=== PATIENT | female | born 1960 | race Caucasian/White ===

== ENCOUNTER 2017-04-09 12:32 | Inpatient (IN) | payer BC ==
[2017-04-09] MEDS: SOD CHLORIDE 0.9% 1,000 ML IV
[2017-04-09] MEDS: ACETAMINOPHEN 325 MG TAB PO ×2 (14:00→20:02)
[2017-04-09] MEDS: SODIUM CHLORIDE 0.9% 1L BAG IV* (14:46)
[2017-04-09 14:51] LABS: ADD MAN DIFF? NO
[2017-04-09 14:54] LABS: BASOPHILS % 0.3 % (0.0-2.0); HEMATOCRIT 28.4 % (37.0-47.0); HEMOGLOBIN 9.4 g/dl (12.0-16.0); LYMPHOCYTES # 0.6 10^3/ul (0.8-2.9); MEAN CORPUSCULAR HEMOGLOBIN 27.8 pg (29.0-33.0); MEAN CORPUSCULAR HGB CONC 33.1 g/dl (32.0-37.0); MEAN PLATELET VOLUME 11.2 fl (7.4-10.4); MONOCYTE # 0.3 10^3/ul (0.3-0.9); MONOCYTES % 7.6 % (0.0-11.0); NEUTROPHILS % 75.1 % (39.0-77.0); PLATELET COUNT 127 10^3/UL (140-415); RED BLOOD COUNT 3.38 10^6/ul (4.20-5.40); RED CELL DISTRIBUTION WIDTH 15.9 % (11.5-14.5)
[2017-04-09 14:54] LABS: WHITE BLOOD COUNT 3.9 10^3/ul (4.8-10.8)
[2017-04-09 14:55] LABS: POSITIVE DIFF @See below
[2017-04-09 15:10] LABS: INR 1.25; PROTIME 15.9 Sec (11.9-14.9); PT RATIO 1.2
[2017-04-09 15:11] LABS: PARTIAL THROMBOPLASTIN TIME 43.4 Sec (25.0-35.0)
[2017-04-09 15:13] LABS: ALANINE AMINOTRANSFERASE 45 IU/L (13-69); ALBUMIN 2.9 g/dl (3.3-4.9); ALKALINE PHOSPHATASE 190 IU/L (42-121); ANION GAP 13 (8-16); ASPARTATE AMINO TRANSFERASE 36 IU/L (15-46); BILIRUBIN,INDIRECT 0.4 mg/dl (0-1.1); BILIRUBIN,TOTAL 0.4 mg/dl (0.2-1.3); BLOOD UREA NITROGEN 26 mg/dl (7-20); CALCIUM 8.4 mg/dl (8.4-10.2); CARBON DIOXIDE 23 mmol/L (21-31); CHLORIDE 102 mmol/L (97-110); CREATININE 0.84 mg/dl (0.44-1.00); GLUCOSE 256 mg/dl (70-220); POTASSIUM 4.2 mmol/L (3.5-5.1); SODIUM 134 mmol/L (135-144)
[2017-04-09] MEDS: ONDANSETRON 4 MG INJ IV (15:14)
[2017-04-09] MEDS: HYDROmorphONE 1 MG/ML SYG IV ×5 (15:14→23:20)
[2017-04-09 15:15] LABS: LACTIC ACID 2.7 mmol/L (0.5-2.0)
[2017-04-09 15:31] LABS: TROPONIN-I < 0.012 ng/ml (0.00-0.12)
[2017-04-09] MEDS: SOD CHLORIDE 0.9% 100 ML (15:57)
[2017-04-09] MEDS: IOHEXOL 300MG/ML 150 ML BTL (15:58)
[2017-04-09] MEDS: CEFEPIME 1GM/50 ML (PMX) 50 ML IVPB (18:30)
[2017-04-09 18:53] LABS: LACTIC ACID 1.3 mmol/L (0.5-2.0)
[2017-04-09 19:55] LABS: ADD UMIC YES; UR ASCORBIC ACID 40 mg/dL (NEGATIVE); UR BILIRUBIN (Dip) NEGATIVE (NEGATIVE); UR BLOOD (Dip) NEGATIVE (NEGATIVE); UR CLARITY CLEAR (CLEAR); UR COLOR YELLOW (YELLOW); UR GLUCOSE (Dip) NEGATIVE (NEGATIVE); UR KETONES (Dip) NEGATIVE (NEGATIVE); UR LEUKOCYTE ESTERASE (Dip) NEGATIVE Leu/ul (NEGATIVE); UR NITRITE (Dip) NEGATIVE (NEGATIVE); UR RBC 1 /HPF (0-5); UR SPECIFIC GRAVITY (Dip) 1.058 (1.003-1.030); UR TOTAL PROTEIN (Dip) 1+ mg/dl (NEGATIVE); UR UROBILINOGEN (Dip) NEGATIVE (NEGATIVE); UR WBC 4 /HPF (0-5)
[2017-04-09] MEDS: VANCOMYCIN 1.5 GM in SOD CHLORIDE 0.9% 250 ML IVPB (19:55)
[2017-04-09] MEDS ORDERED: VANCOMYCIN IV PER PHARMACY XX (20:00)
[2017-04-09] MEDS ORDERED: ONDANSETRON 4 MG INJ IV (20:00)
[2017-04-09 20:06] LABS: ALANINE AMINOTRANSFERASE 53 IU/L (13-69); ALBUMIN 2.8 g/dl (3.3-4.9); ALKALINE PHOSPHATASE 190 IU/L (42-121); ASPARTATE AMINO TRANSFERASE 41 IU/L (15-46); BILIRUBIN,INDIRECT 0.4 mg/dl (0-1.1); BILIRUBIN,TOTAL 0.4 mg/dl (0.2-1.3); TOTAL PROTEIN 6.6 g/dl (6.1-8.1)
[2017-04-09] MEDS: INSULIN ASPART [NOVOLOG] 3 ML PEN SC (21:00)
[2017-04-09] MEDS ORDERED: ONDANSETRON 4 MG TAB PO (21:30)
[2017-04-09] MEDS ORDERED: HYDROmorphONE 2 MG TAB PO (21:30)
[2017-04-09] MEDS: CLONIDINE 0.1 MG/24 HR PATCH TRANSDERM (22:00)
[2017-04-09] MEDS: FENTAnyl PATCH 12 MCG/HR TRANSDERM (23:13)
[2017-04-09] MEDS: INSULIN GLARGINE [LANtus] 3 ML PEN SC (23:17)
[2017-04-09] MEDS: ENOXAPARIN 60 MG/0.6 ML SYG SC (23:49)
[2017-04-09] MEDS: OCTREOTIDE 100 MCG INJ SC (23:49)
[2017-04-10] MEDS ORDERED: TPN 1,000 ML IV
[2017-04-10] MEDS ORDERED: DEXTROSE 50% 50 ML SYRINGE (01:52)
[2017-04-10] MEDS: DEXTROSE 50% 50 ML SYRINGE IV ×2 (01:53→04:21)
[2017-04-10] MEDS ORDERED: GLUCOSE GEL 15 GRAM TUBE PO ×2 (02:00)
[2017-04-10] MEDS ORDERED: GLUCAGON 1 MG INJ IM (02:00)
[2017-04-10] MEDS: ACCU-CHEK XX (02:00)
[2017-04-10] MEDS ORDERED: DEXTROSE 50% 50 ML SYRINGE IV (02:00)
[2017-04-10] MEDS ORDERED: GLUCOSE GEL 15 GRAM TUBE BUCCAL (02:00)
[2017-04-10] MEDS ORDERED: DEXTROSE 10% 1,000 ML IV ×2 (02:00→02:07)
[2017-04-10] MEDS: DEXTROSE 10% 1,000 ML IV (02:15)
[2017-04-10] MEDS: PANTOPRAZOLE 40 MG INJ IV ×2 (02:52→06:00)
[2017-04-10] MEDS: HYDROmorphONE 2 MG/ML SYG IV ×5 (02:55→22:14)
[2017-04-10 05:43] LABS: ADD MAN DIFF? NO
[2017-04-10 05:45] LABS: WHITE BLOOD COUNT 2.3 10^3/ul (4.8-10.8)
[2017-04-10 05:45] LABS: ABNORMAL IP MESSAGE 1; BASOPHILS % 0.4 % (0.0-2.0); EOSINOPHILS % 1.3 % (0.0-7.0); HEMOGLOBIN 8.3 g/dl (12.0-16.0); LYMPHOCYTES # 0.6 10^3/ul (0.8-2.9); MEAN CORPUSCULAR HEMOGLOBIN 27.9 pg (29.0-33.0); MEAN CORPUSCULAR HGB CONC 31.9 g/dl (32.0-37.0); MEAN CORPUSCULAR VOLUME 87.2 fl (82.0-101.0); MEAN PLATELET VOLUME 11.3 fl (7.4-10.4); MONOCYTE # 0.2 10^3/ul (0.3-0.9); NEUTROPHIL # 1.5 10^3/ul (1.6-7.5); NEUTROPHILS % 63.4 % (39.0-77.0); PLATELET COUNT 107 10^3/UL (140-415); RED BLOOD COUNT 2.98 10^6/ul (4.20-5.40); RED CELL DISTRIBUTION WIDTH 15.9 % (11.5-14.5)
[2017-04-10] MEDS: ACETAMINOPHEN 325 MG TAB PO (05:52)
[2017-04-10 06:00] LABS: POSITIVE DIFF @See below
[2017-04-10] MEDS ORDERED: HYDROmorphONE 2 MG/ML SYG IV (06:00)
[2017-04-10 06:15] LABS: LACTIC ACID 0.9 mmol/L (0.5-2.0)
[2017-04-10 06:18] LABS: ANION GAP 9 (8-16); BLOOD UREA NITROGEN 14 mg/dl (7-20); CALCIUM 7.9 mg/dl (8.4-10.2); CARBON DIOXIDE 24 mmol/L (21-31); CHLORIDE 108 mmol/L (97-110); POTASSIUM 3.6 mmol/L (3.5-5.1); SODIUM 137 mmol/L (135-144)
[2017-04-10 06:44] LABS: GLUCOSE 45 mg/dl (70-220)
[2017-04-10] MEDS: LEVOTHYROXINE 75 MCG TAB PO (06:50)
[2017-04-10] MEDS: INSULIN ASPART [NOVOLOG] 3 ML PEN SC ×4 (07:35→20:08)
[2017-04-10] MEDS: OCTREOTIDE 100 MCG INJ SC ×3 (08:50→22:40)
[2017-04-10] MEDS: CHOLECALCIFEROL 2,000 UNIT CAP PO (08:53)
[2017-04-10] MEDS: ASCORBIC ACID 500 MG TAB PO ×2 (08:53→22:04)
[2017-04-10] MEDS: MULTIVITAMINS/MINERALS TAB PO (08:53)
[2017-04-10] MEDS: ZINC SULFATE 220 MG CAP PO (08:54)
[2017-04-10] MEDS: CEFEPIME 1GM/50 ML (PMX) 50 ML IVPB (08:55)
[2017-04-10] MEDS: VANCOMYCIN 750 MG in DEXTROSE 5% 150 ML IVPB ×2 (10:47→22:03)
[2017-04-10] MEDS: ANASTROZOLE 1 MG TAB PO (12:27)
[2017-04-10] MEDS: SOD CHLORIDE 0.9% 1,000 ML IV (13:21)
[2017-04-10] MEDS: VANCOMYCIN HCL 250 MG/5ML POSYG PO ×2 (14:14→16:37)
[2017-04-10] MEDS: INSULIN GLARGINE [LANtus] 3 ML PEN SC (20:09)
[2017-04-10] MEDS: TPN 1,000 ML IV (20:15)
[2017-04-10] MEDS: ENOXAPARIN 60 MG/0.6 ML SYG SC (22:06)
[2017-04-10] MEDS: ZOLPIDEM 5 MG TAB PO (22:39)
[2017-04-11] MEDS: INSULIN ASPART [NOVOLOG] 3 ML PEN SC ×6 (01:00→20:23)
[2017-04-11] MEDS: VANCOMYCIN HCL 250 MG/5ML POSYG PO ×5 (01:23→22:19)
[2017-04-11] MEDS: TPN 1,000 ML IV ×3 (01:25→18:28)
[2017-04-11] MEDS: ACCU-CHEK XX (01:28)
[2017-04-11] MEDS: HYDROmorphONE 2 MG/ML SYG IV ×7 (02:01→23:19)
[2017-04-11] MEDS: LEVOTHYROXINE 75 MCG TAB PO (05:22)
[2017-04-11] MEDS: PANTOPRAZOLE 40 MG INJ IV (05:22)
[2017-04-11] MEDS: OCTREOTIDE 100 MCG INJ SC ×3 (05:22→20:16)
[2017-04-11] MEDS: SOD CHLORIDE 0.9% 1,000 ML IV (05:34)
[2017-04-11 08:26] LABS: ALANINE AMINOTRANSFERASE 48 IU/L (13-69); ALBUMIN 2.6 g/dl (3.3-4.9); ALBUMIN/GLOBULIN RATIO 0.63; ALKALINE PHOSPHATASE 143 IU/L (42-121); ANION GAP 11 (8-16); ASPARTATE AMINO TRANSFERASE 34 IU/L (15-46); BILIRUBIN,INDIRECT 0.3 mg/dl (0-1.1); BILIRUBIN,TOTAL 0.3 mg/dl (0.2-1.3); BLOOD UREA NITROGEN 13 mg/dl (7-20); CALCIUM 8.5 mg/dl (8.4-10.2); CARBON DIOXIDE 26 mmol/L (21-31); CHLORIDE 107 mmol/L (97-110); CREATININE 0.73 mg/dl (0.44-1.00); GLUCOSE 126 mg/dl (70-220); MAGNESIUM 1.8 mg/dl (1.7-2.5); PHOSPHORUS 3.1 mg/dl (2.5-4.9); POTASSIUM 3.9 mmol/L (3.5-5.1); SODIUM 140 mmol/L (135-144); TOTAL PROTEIN 6.7 g/dl (6.1-8.1); TRIGLYCERIDES 174 mg/dl (0-149)
[2017-04-11 08:30] LABS: VANCOMYCIN,TROUGH 13.4 ug/ml (10.0-20.0)
[2017-04-11] MEDS: ASCORBIC ACID 500 MG TAB PO ×2 (08:52→20:15)
[2017-04-11] MEDS: VANCOMYCIN 750 MG in DEXTROSE 5% 150 ML IVPB ×2 (08:52→20:16)
[2017-04-11] MEDS: CHOLECALCIFEROL 2,000 UNIT CAP PO (08:52)
[2017-04-11] MEDS: ZINC SULFATE 220 MG CAP PO (08:53)
[2017-04-11 08:56] LABS: PREALBUMIN 9.1 mg/dl (17.6-36.0)
[2017-04-11] MEDS: ANASTROZOLE 1 MG TAB PO (09:14)
[2017-04-11 09:34] LABS: ERYTHROCYTE SEDIMENTATION RATE 93 mm/Hr (0-30)
[2017-04-11] MEDS: CEFEPIME 1GM/50 ML (PMX) 50 ML IVPB ×2 (11:13→21:21)
[2017-04-11] MEDS: MULTIVITAMINS/MINERALS TAB PO (11:13)
[2017-04-11] MEDS: INSULIN GLARGINE [LANtus] 3 ML PEN SC (20:27)
[2017-04-11] MEDS: ENOXAPARIN 60 MG/0.6 ML SYG SC (21:23)
[2017-04-11] MEDS: ZOLPIDEM 5 MG TAB PO (22:14)
[2017-04-12] MEDS: INSULIN ASPART [NOVOLOG] 3 ML PEN SC ×6 (01:00→21:21)
[2017-04-12] MEDS: TPN 1,000 ML IV ×4 (01:00→20:17)
[2017-04-12] MEDS: HYDROmorphONE 2 MG/ML SYG IV ×7 (01:59→21:36)
[2017-04-12] MEDS: ACCU-CHEK XX (02:19)
[2017-04-12] MEDS: SOD CHLORIDE 0.9% 1,000 ML IV ×2 (04:13→20:40)
[2017-04-12] MEDS: PANTOPRAZOLE 40 MG INJ IV (05:05)
[2017-04-12] MEDS: LEVOTHYROXINE 75 MCG TAB PO (05:05)
[2017-04-12] MEDS: OCTREOTIDE 100 MCG INJ SC ×3 (05:05→21:19)
[2017-04-12] MEDS: VANCOMYCIN HCL 250 MG/5ML POSYG PO ×4 (05:07→23:42)
[2017-04-12 06:16] LABS: ADD MAN DIFF? NO
[2017-04-12 06:20] LABS: WHITE BLOOD COUNT 2.6 10^3/ul (4.8-10.8)
[2017-04-12 06:20] LABS: ABNORMAL IP MESSAGE 1; BASOPHILS % 0.4 % (0.0-2.0); EOSINOPHILS # 0.1 10^3/ul (0.0-0.5); EOSINOPHILS % 3.1 % (0.0-7.0); HEMATOCRIT 26.4 % (37.0-47.0); HEMOGLOBIN 8.6 g/dl (12.0-16.0); LYMPHOCYTES # 1.3 10^3/ul (0.8-2.9); LYMPHOCYTES % 48.8 % (15.0-51.0); MEAN CORPUSCULAR HEMOGLOBIN 27.5 pg (29.0-33.0); MEAN CORPUSCULAR HGB CONC 32.6 g/dl (32.0-37.0); MEAN CORPUSCULAR VOLUME 84.3 fl (82.0-101.0); MEAN PLATELET VOLUME 10.9 fl (7.4-10.4); MONOCYTE # 0.3 10^3/ul (0.3-0.9); MONOCYTES % 11.3 % (0.0-11.0); NEUTROPHIL # 0.9 10^3/ul (1.6-7.5); PLATELET COUNT 114 10^3/UL (140-415); RED BLOOD COUNT 3.13 10^6/ul (4.20-5.40); RED CELL DISTRIBUTION WIDTH 15.8 % (11.5-14.5)
[2017-04-12 06:23] LABS: POSITIVE DIFF @See below
[2017-04-12 06:58] LABS: PHOSPHORUS 3.4 mg/dl (2.5-4.9)
[2017-04-12 06:58] LABS: MAGNESIUM 1.8 mg/dl (1.7-2.5)
[2017-04-12 07:00] LABS: ANION GAP 9 (8-16); BLOOD UREA NITROGEN 15 mg/dl (7-20); CALCIUM 8.5 mg/dl (8.4-10.2); CARBON DIOXIDE 26 mmol/L (21-31); CHLORIDE 108 mmol/L (97-110); CREATININE 0.72 mg/dl (0.44-1.00); GLUCOSE 119 mg/dl (70-220); POTASSIUM 3.7 mmol/L (3.5-5.1); SODIUM 139 mmol/L (135-144)
[2017-04-12] MEDS: ASCORBIC ACID 500 MG TAB PO ×2 (08:42→21:29)
[2017-04-12] MEDS: CEFEPIME 1GM/50 ML (PMX) 50 ML IVPB (08:42)
[2017-04-12] MEDS: CHOLECALCIFEROL 2,000 UNIT CAP PO (08:43)
[2017-04-12] MEDS: MULTIVITAMINS/MINERALS TAB PO (08:43)
[2017-04-12] MEDS: ZINC SULFATE 220 MG CAP PO (08:43)
[2017-04-12] MEDS: ANASTROZOLE 1 MG TAB PO (08:46)
[2017-04-12] MEDS: VANCOMYCIN 750 MG in DEXTROSE 5% 150 ML IVPB (09:32)
[2017-04-12] MEDS ORDERED: LINEZOLID 600 MG/D5W (PMX) 300 ML IVPB (17:00)
[2017-04-12] MEDS: CEFTRIAXONE 1 GM/50 ML (PMX) 50 ML IVPB (18:12)
[2017-04-12] MEDS: FAT EMULSION 20% 250 ML IV (19:40)
[2017-04-12] MEDS: DAPTOMYCIN 460 MG in SOD CHLORIDE 0.9% 100 ML IVPB (20:14)
[2017-04-12] MEDS: ENOXAPARIN 60 MG/0.6 ML SYG SC (21:19)
[2017-04-12] MEDS: INSULIN GLARGINE [LANtus] 3 ML PEN SC (21:20)
[2017-04-12] MEDS: ZOLPIDEM 5 MG TAB PO (22:37)
[2017-04-12] MEDS: FENTAnyl PATCH 12 MCG/HR TRANSDERM (23:36)
[2017-04-13] MEDS: INSULIN ASPART [NOVOLOG] 3 ML PEN SC ×6 (01:00→21:06)
[2017-04-13] MEDS: HYDROmorphONE 2 MG/ML SYG IV ×7 (01:09→23:32)
[2017-04-13] MEDS: ACCU-CHEK XX (01:15)
[2017-04-13] MEDS: TPN 1,000 ML IV ×2 (01:58→18:39)
[2017-04-13] MEDS: ONDANSETRON 4 MG INJ IV (05:08)
[2017-04-13 05:22] LABS: ADD MAN DIFF? NO
[2017-04-13 05:30] LABS: WHITE BLOOD COUNT 2.7 10^3/ul (4.8-10.8)
[2017-04-13 05:30] LABS: BASOPHILS % 0.4 % (0.0-2.0); EOSINOPHILS # 0.1 10^3/ul (0.0-0.5); EOSINOPHILS % 3.7 % (0.0-7.0); HEMATOCRIT 25.8 % (37.0-47.0); HEMOGLOBIN 8.6 g/dl (12.0-16.0); LYMPHOCYTES # 1.3 10^3/ul (0.8-2.9); LYMPHOCYTES % 49.3 % (15.0-51.0); MEAN CORPUSCULAR HGB CONC 33.3 g/dl (32.0-37.0); MEAN PLATELET VOLUME 10.8 fl (7.4-10.4); MONOCYTE # 0.2 10^3/ul (0.3-0.9); MONOCYTES % 7.7 % (0.0-11.0); NEUTROPHIL # 1.1 10^3/ul (1.6-7.5); NEUTROPHILS % 38.5 % (39.0-77.0); PLATELET COUNT 129 10^3/UL (140-415); RED BLOOD COUNT 3.07 10^6/ul (4.20-5.40); RED CELL DISTRIBUTION WIDTH 15.6 % (11.5-14.5)
[2017-04-13] MEDS: PANTOPRAZOLE 40 MG INJ IV (05:58)
[2017-04-13] MEDS: OCTREOTIDE 100 MCG INJ SC ×3 (05:58→20:57)
[2017-04-13] MEDS: LEVOTHYROXINE 75 MCG TAB PO (05:58)
[2017-04-13] MEDS: VANCOMYCIN HCL 250 MG/5ML POSYG PO ×4 (06:00→23:32)
[2017-04-13 06:19] LABS: ANION GAP 12 (8-16); BLOOD UREA NITROGEN 16 mg/dl (7-20); CALCIUM 8.2 mg/dl (8.4-10.2); CARBON DIOXIDE 22 mmol/L (21-31); CHLORIDE 109 mmol/L (97-110); CREATININE 0.71 mg/dl (0.44-1.00); GLUCOSE 174 mg/dl (70-220); POTASSIUM 3.6 mmol/L (3.5-5.1); SODIUM 139 mmol/L (135-144)
[2017-04-13 06:25] LABS: MAGNESIUM 1.9 mg/dl (1.7-2.5)
[2017-04-13 06:25] LABS: PHOSPHORUS 3.5 mg/dl (2.5-4.9)
[2017-04-13] MEDS: SOD CHLORIDE 0.9% 1,000 ML IV (09:07)
[2017-04-13] MEDS: ASCORBIC ACID 500 MG TAB PO ×2 (09:11→20:16)
[2017-04-13] MEDS: CHOLECALCIFEROL 2,000 UNIT CAP PO (09:11)
[2017-04-13] MEDS: MULTIVITAMINS/MINERALS TAB PO (09:11)
[2017-04-13] MEDS: ZINC SULFATE 220 MG CAP PO (09:11)
[2017-04-13] MEDS: ANASTROZOLE 1 MG TAB PO (09:16)
[2017-04-13 12:23] LABS: CREATINE KINASE < 20 IU/L (23-200)
[2017-04-13] MEDS: CEFTRIAXONE 1 GM/50 ML (PMX) 50 ML IVPB (17:59)
[2017-04-13] MEDS: DAPTOMYCIN 460 MG in SOD CHLORIDE 0.9% 100 ML IVPB (20:51)
[2017-04-13] MEDS: ENOXAPARIN 60 MG/0.6 ML SYG SC (20:55)
[2017-04-13] MEDS: INSULIN GLARGINE [LANtus] 3 ML PEN SC (21:05)
[2017-04-13] MEDS: ZOLPIDEM 5 MG TAB PO (22:42)
[2017-04-14] MEDS: INSULIN ASPART [NOVOLOG] 3 ML PEN SC ×6 (01:00→22:09)
[2017-04-14] MEDS: TPN 1,000 ML IV ×2 (01:04→18:28)
[2017-04-14] MEDS: ACCU-CHEK XX (01:07)
[2017-04-14] MEDS: HYDROmorphONE 2 MG/ML SYG IV ×7 (02:28→21:37)
[2017-04-14] MEDS: SOD CHLORIDE 0.9% 1,000 ML IV ×2 (05:42→22:40)
[2017-04-14] MEDS: VANCOMYCIN HCL 250 MG/5ML POSYG PO ×3 (05:43→17:54)
[2017-04-14] MEDS: PANTOPRAZOLE 40 MG INJ IV (05:44)
[2017-04-14] MEDS: LEVOTHYROXINE 75 MCG TAB PO (05:44)
[2017-04-14] MEDS: OCTREOTIDE 100 MCG INJ SC ×3 (05:44→22:31)
[2017-04-14 05:50] LABS: ADD MAN DIFF? NO
[2017-04-14 05:57] LABS: BASOPHILS % 0.4 % (0.0-2.0); EOSINOPHILS # 0.1 10^3/ul (0.0-0.5); EOSINOPHILS % 2.8 % (0.0-7.0); HEMATOCRIT 25.3 % (37.0-47.0); HEMOGLOBIN 8.2 g/dl (12.0-16.0); LYMPHOCYTES # 1.3 10^3/ul (0.8-2.9); LYMPHOCYTES % 46.8 % (15.0-51.0); MEAN CORPUSCULAR HEMOGLOBIN 27.2 pg (29.0-33.0); MEAN CORPUSCULAR HGB CONC 32.4 g/dl (32.0-37.0); MEAN CORPUSCULAR VOLUME 84.1 fl (82.0-101.0); MEAN PLATELET VOLUME 10.6 fl (7.4-10.4); MONOCYTE # 0.2 10^3/ul (0.3-0.9); MONOCYTES % 7.8 % (0.0-11.0); NEUTROPHIL # 1.2 10^3/ul (1.6-7.5); NEUTROPHILS % 41.8 % (39.0-77.0); PLATELET COUNT 132 10^3/UL (140-415); RED BLOOD COUNT 3.01 10^6/ul (4.20-5.40); RED CELL DISTRIBUTION WIDTH 15.4 % (11.5-14.5)
[2017-04-14 05:57] LABS: WHITE BLOOD COUNT 2.8 10^3/ul (4.8-10.8)
[2017-04-14 06:24] LABS: ANION GAP 11 (8-16); BLOOD UREA NITROGEN 20 mg/dl (7-20); CALCIUM 8.4 mg/dl (8.4-10.2); CARBON DIOXIDE 26 mmol/L (21-31); CHLORIDE 108 mmol/L (97-110); CREATININE 0.72 mg/dl (0.44-1.00); GLUCOSE 148 mg/dl (70-220); POTASSIUM 3.7 mmol/L (3.5-5.1); SODIUM 141 mmol/L (135-144)
[2017-04-14] MEDS: MULTIVITAMINS/MINERALS TAB PO (09:15)
[2017-04-14] MEDS: ASCORBIC ACID 500 MG TAB PO ×2 (09:15→20:24)
[2017-04-14] MEDS: CHOLECALCIFEROL 2,000 UNIT CAP PO (09:15)
[2017-04-14] MEDS: ZINC SULFATE 220 MG CAP PO (09:15)
[2017-04-14] MEDS: ANASTROZOLE 1 MG TAB PO (09:21)
[2017-04-14] MEDS: PSYLLIUM (SUGAR FREE) PACKET PO ×2 (16:31→20:24)
[2017-04-14] MEDS: CEFTRIAXONE 1 GM/50 ML (PMX) 50 ML IVPB (16:31)
[2017-04-14] MEDS ORDERED: PSYLLIUM (SUGAR FREE) PACKET PO (20:00)
[2017-04-14] MEDS: FAT EMULSION 20% 250 ML IV (20:24)
[2017-04-14] MEDS: DAPTOMYCIN 460 MG in SOD CHLORIDE 0.9% 100 ML IVPB (20:24)
[2017-04-14 20:37] LABS: PROCALCITONIN 1.31 ng/mL (<0.10)
[2017-04-14] MEDS: INSULIN GLARGINE [LANtus] 3 ML PEN SC (22:07)
[2017-04-14] MEDS: ZOLPIDEM 5 MG TAB PO (22:31)
[2017-04-14] MEDS: ENOXAPARIN 60 MG/0.6 ML SYG SC (22:33)
[2017-04-15] MEDS: VANCOMYCIN HCL 250 MG/5ML POSYG PO ×5 (00:27→23:26)
[2017-04-15] MEDS: HYDROmorphONE 2 MG/ML SYG IV ×8 (00:27→23:26)
[2017-04-15] MEDS: INSULIN ASPART [NOVOLOG] 3 ML PEN SC ×6 (00:35→20:21)
[2017-04-15] MEDS: TPN 1,000 ML IV ×3 (01:00→18:54)
[2017-04-15] MEDS: ACCU-CHEK XX (01:34)
[2017-04-15] MEDS: LEVOTHYROXINE 75 MCG TAB PO (05:09)
[2017-04-15] MEDS: OCTREOTIDE 100 MCG INJ SC ×3 (05:09→21:50)
[2017-04-15] MEDS: PANTOPRAZOLE 40 MG INJ IV (05:09)
[2017-04-15 05:21] LABS: HEMATOCRIT 27.4 % (37.0-47.0); HEMOGLOBIN 9.4 g/dl (12.0-16.0); MEAN CORPUSCULAR HEMOGLOBIN 29.6 pg (29.0-33.0); MEAN CORPUSCULAR HGB CONC 34.3 g/dl (32.0-37.0); MEAN CORPUSCULAR VOLUME 86.2 fl (82.0-101.0); MEAN PLATELET VOLUME 10.3 fl (7.4-10.4); PLATELET COUNT 168 10^3/UL (140-415); RED BLOOD COUNT 3.18 10^6/ul (4.20-5.40); RED CELL DISTRIBUTION WIDTH 15.6 % (11.5-14.5)
[2017-04-15 05:21] LABS: WHITE BLOOD COUNT 3.2 10^3/ul (4.8-10.8)
[2017-04-15 05:35] LABS: ADD MAN DIFF? YES; POSITIVE DIFF @See below
[2017-04-15 05:53] LABS: ANION GAP 11 (8-16); BLOOD UREA NITROGEN 19 mg/dl (7-20); CALCIUM 8.2 mg/dl (8.4-10.2); CARBON DIOXIDE 26 mmol/L (21-31); CHLORIDE 105 mmol/L (97-110); CREATININE 0.64 mg/dl (0.44-1.00); GLUCOSE 160 mg/dl (70-220); POTASSIUM 3.3 mmol/L (3.5-5.1); SODIUM 139 mmol/L (135-144)
[2017-04-15] MEDS: SOD CHLORIDE 0.9% 1,000 ML IV (07:15)
[2017-04-15] MEDS ORDERED: hydrALAzine 20 MG INJ IV (09:00)
[2017-04-15] MEDS: METOPROLOL 50 MG TAB PO ×2 (09:01→20:15)
[2017-04-15] MEDS: ZINC SULFATE 220 MG CAP PO (09:01)
[2017-04-15] MEDS: CHOLECALCIFEROL 2,000 UNIT CAP PO (09:01)
[2017-04-15] MEDS: ASCORBIC ACID 500 MG TAB PO ×2 (09:01→20:13)
[2017-04-15] MEDS: ACETAMINOPHEN 325 MG TAB PO (09:01)
[2017-04-15] MEDS: MULTIVITAMINS/MINERALS TAB PO (09:01)
[2017-04-15] MEDS: PSYLLIUM (SUGAR FREE) PACKET PO ×2 (09:02→21:49)
[2017-04-15] MEDS: ANASTROZOLE 1 MG TAB PO (09:13)
[2017-04-15] MEDS ORDERED: CASPOFUNGIN 50 MG in SOD CHLORIDE 0.9% 250 ML IVPB (10:00)
[2017-04-15 10:01] LABS: ANISOCYTOSIS 1+ (0-0); BAND NEUTROPHILS #M 0.5 10^3/ul (0.0-0.6); BAND NEUTROPHILS % (M) 17 % (0-4); EOSINOPHILS % (M) 7 % (0-7); GIANT THROMBO% (M) 5 % (0-0); LYMPHOCYTES % (M) 34 % (15-51); MICROCYTOSIS 1+ (0-0); MONOCYTES % (M) 3 % (0-11); PLATELET ESTIMATE NORMAL; POIKILOCYTOSIS 2+ (0-0); POLYCHROMASIA 1+ (0-0); SEG NEUT #M 1.3 10^3/ul (1.7-7.5); SEGMENTED NEUTROPHILS (M) % 39 % (39-77); SMUDGE%M 31 % (0-0)
[2017-04-15] MEDS ORDERED: SPECIAL NON-STANDARD MEDICATION INJ (10:30)
[2017-04-15 11:30] LABS: LACTIC ACID 2.5 mmol/L (0.5-2.0)
[2017-04-15] MEDS: CASPOFUNGIN 70 MG in NS 250 ML IVPB ×2 (12:00→14:15)
[2017-04-15] MEDS: MEROPENEM 1 GM/50ML(PMX) 50 ML IVPB ×3 (13:07→22:10)
[2017-04-15 14:13] LABS: ADD UMIC NO; UR ASCORBIC ACID NEGATIVE (NEGATIVE); UR BILIRUBIN (Dip) NEGATIVE (NEGATIVE); UR BLOOD (Dip) NEGATIVE (NEGATIVE); UR CLARITY CLEAR (CLEAR); UR COLOR YELLOW (YELLOW); UR GLUCOSE (Dip) NEGATIVE (NEGATIVE); UR KETONES (Dip) NEGATIVE (NEGATIVE); UR LEUKOCYTE ESTERASE (Dip) NEGATIVE Leu/ul (NEGATIVE); UR NITRITE (Dip) NEGATIVE (NEGATIVE); UR SPECIFIC GRAVITY (Dip) 1.012 (1.003-1.030); UR TOTAL PROTEIN (Dip) NEGATIVE (NEGATIVE); UR UROBILINOGEN (Dip) NEGATIVE (NEGATIVE)
[2017-04-15] MEDS: DAPTOMYCIN 460 MG in SOD CHLORIDE 0.9% 100 ML IVPB (20:00)
[2017-04-15] MEDS: INSULIN GLARGINE [LANtus] 3 ML PEN SC (20:20)
[2017-04-15] MEDS: ENOXAPARIN 60 MG/0.6 ML SYG SC (21:53)
[2017-04-15] MEDS: FENTAnyl PATCH 12 MCG/HR TRANSDERM (22:20)
[2017-04-15] MEDS: ZOLPIDEM 5 MG TAB PO (22:32)
[2017-04-16] MEDS: ACCU-CHEK XX (01:03)
[2017-04-16] MEDS: ACETAMINOPHEN 325 MG TAB PO (01:11)
[2017-04-16] MEDS: INSULIN ASPART [NOVOLOG] 3 ML PEN SC ×6 (01:11→20:29)
[2017-04-16] MEDS: TPN 1,000 ML IV ×2 (01:37→18:31)
[2017-04-16] MEDS: HYDROmorphONE 2 MG/ML SYG IV ×6 (03:11→20:16)
[2017-04-16] MEDS: OCTREOTIDE 100 MCG INJ SC ×3 (05:08→21:28)
[2017-04-16] MEDS: PANTOPRAZOLE 40 MG INJ IV (05:25)
[2017-04-16] MEDS: LEVOTHYROXINE 75 MCG TAB PO (05:26)
[2017-04-16] MEDS: MEROPENEM 1 GM/50ML(PMX) 50 ML IVPB ×3 (05:26→22:37)
[2017-04-16] MEDS: VANCOMYCIN HCL 250 MG/5ML POSYG PO ×3 (05:26→17:13)
[2017-04-16] MEDS: ASCORBIC ACID 500 MG TAB PO ×2 (09:34→20:37)
[2017-04-16] MEDS: CHOLECALCIFEROL 2,000 UNIT CAP PO (09:34)
[2017-04-16] MEDS: ZINC SULFATE 220 MG CAP PO (09:34)
[2017-04-16] MEDS: MULTIVITAMINS/MINERALS TAB PO (09:34)
[2017-04-16] MEDS: PSYLLIUM (SUGAR FREE) PACKET PO ×2 (09:35→20:37)
[2017-04-16] MEDS: METOPROLOL 50 MG TAB PO ×2 (09:38→20:37)
[2017-04-16] MEDS: ANASTROZOLE 1 MG TAB PO (09:58)
[2017-04-16] MEDS: CASPOFUNGIN 50 MG in NS 250 ML IVPB (13:38)
[2017-04-16] MEDS: SOD CHLORIDE 0.9% 1,000 ML IV (14:52)
[2017-04-16] MEDS: FAT EMULSION 20% 250 ML IV (18:30)
[2017-04-16] MEDS: DAPTOMYCIN 460 MG in SOD CHLORIDE 0.9% 100 ML IVPB (20:04)
[2017-04-16] MEDS: INSULIN GLARGINE [LANtus] 3 ML PEN SC (20:28)
[2017-04-16] MEDS: LIDOCAINE 1% (MPF) 5 ML VIAL SC (20:30)
[2017-04-16] MEDS: ENOXAPARIN 60 MG/0.6 ML SYG SC (21:49)
[2017-04-17] MEDS: VANCOMYCIN HCL 250 MG/5ML POSYG PO ×5 (00:05→23:02)
[2017-04-17] MEDS: CLONIDINE 0.1 MG/24 HR PATCH TRANSDERM (00:07)
[2017-04-17] MEDS: HYDROmorphONE 2 MG/ML SYG IV ×8 (00:11→22:03)
[2017-04-17] MEDS: SOD CHLORIDE 0.9% 1,000 ML IV ×2 (00:40→17:20)
[2017-04-17] MEDS: TPN 1,000 ML IV ×4 (01:00→19:00)
[2017-04-17] MEDS: ZOLPIDEM 5 MG TAB PO ×2 (01:08→23:02)
[2017-04-17] MEDS: INSULIN ASPART [NOVOLOG] 3 ML PEN SC ×6 (01:19→20:42)
[2017-04-17] MEDS: ACCU-CHEK XX (01:22)
[2017-04-17] MEDS: MEROPENEM 1 GM/50ML(PMX) 50 ML IVPB ×4 (05:02→22:03)
[2017-04-17] MEDS: LEVOTHYROXINE 75 MCG TAB PO (05:19)
[2017-04-17] MEDS: PANTOPRAZOLE 40 MG INJ IV (05:19)
[2017-04-17] MEDS: OCTREOTIDE 100 MCG INJ SC ×4 (05:19→20:43)
[2017-04-17] MEDS: ONDANSETRON 4 MG INJ IV (09:08)
[2017-04-17] MEDS: CHOLECALCIFEROL 2,000 UNIT CAP PO (09:09)
[2017-04-17] MEDS: METOPROLOL 50 MG TAB PO ×2 (09:09→20:44)
[2017-04-17] MEDS: ZINC SULFATE 220 MG CAP PO (09:09)
[2017-04-17] MEDS: MULTIVITAMINS/MINERALS TAB PO (09:09)
[2017-04-17] MEDS: ASCORBIC ACID 500 MG TAB PO ×2 (09:09→20:43)
[2017-04-17] MEDS: ANASTROZOLE 1 MG TAB PO (09:10)
[2017-04-17] MEDS: PSYLLIUM (SUGAR FREE) PACKET PO ×2 (09:14→20:43)
[2017-04-17] MEDS: CASPOFUNGIN 50 MG in NS 250 ML IVPB (12:45)
[2017-04-17] MEDS: INSULIN GLARGINE [LANtus] 3 ML PEN SC (20:41)
[2017-04-17] MEDS: ENOXAPARIN 60 MG/0.6 ML SYG SC (20:43)
[2017-04-17] MEDS: DAPTOMYCIN 460 MG in SOD CHLORIDE 0.9% 100 ML IVPB (20:58)
[2017-04-18] MEDS: INSULIN ASPART [NOVOLOG] 3 ML PEN SC ×6 (01:00→21:00)
[2017-04-18] MEDS: HYDROmorphONE 2 MG/ML SYG IV ×8 (01:09→22:44)
[2017-04-18] MEDS: ACCU-CHEK XX (01:15)
[2017-04-18] MEDS: TPN 1,000 ML IV ×2 (01:15→18:49)
[2017-04-18] MEDS: LEVOTHYROXINE 75 MCG TAB PO (05:20)
[2017-04-18] MEDS: OCTREOTIDE 100 MCG INJ SC ×3 (05:20→21:02)
[2017-04-18] MEDS: PANTOPRAZOLE 40 MG INJ IV (05:20)
[2017-04-18] MEDS: VANCOMYCIN HCL 250 MG/5ML POSYG PO ×4 (05:20→23:32)
[2017-04-18 05:34] LABS: ADD MAN DIFF? NO
[2017-04-18 05:41] LABS: BASOPHILS % 0.3 % (0.0-2.0); EOSINOPHILS # 0.1 10^3/ul (0.0-0.5); EOSINOPHILS % 2.1 % (0.0-7.0); HEMOGLOBIN 8.3 g/dl (12.0-16.0); LYMPHOCYTES # 1.5 10^3/ul (0.8-2.9); LYMPHOCYTES % 43.9 % (15.0-51.0); MEAN CORPUSCULAR HEMOGLOBIN 27.5 pg (29.0-33.0); MEAN CORPUSCULAR HGB CONC 31.9 g/dl (32.0-37.0); MEAN CORPUSCULAR VOLUME 86.1 fl (82.0-101.0); MEAN PLATELET VOLUME 10.7 fl (7.4-10.4); MONOCYTE # 0.4 10^3/ul (0.3-0.9); MONOCYTES % 10.6 % (0.0-11.0); NEUTROPHIL # 1.4 10^3/ul (1.6-7.5); NEUTROPHILS % 41.9 % (39.0-77.0); PLATELET COUNT 154 10^3/UL (140-415); RED BLOOD COUNT 3.02 10^6/ul (4.20-5.40); RED CELL DISTRIBUTION WIDTH 15.7 % (11.5-14.5)
[2017-04-18 05:41] LABS: WHITE BLOOD COUNT 3.3 10^3/ul (4.8-10.8)
[2017-04-18 06:17] LABS: ANION GAP 8 (8-16); BLOOD UREA NITROGEN 21 mg/dl (7-20); CALCIUM 8.2 mg/dl (8.4-10.2); CARBON DIOXIDE 29 mmol/L (21-31); CHLORIDE 105 mmol/L (97-110); CREATININE 0.68 mg/dl (0.44-1.00); GLUCOSE 174 mg/dl (70-220); POTASSIUM 4.2 mmol/L (3.5-5.1); SODIUM 138 mmol/L (135-144)
[2017-04-18 06:44] LABS: CREATINE KINASE < 20 IU/L (23-200)
[2017-04-18] MEDS: CHOLECALCIFEROL 2,000 UNIT CAP PO (09:23)
[2017-04-18] MEDS: ZINC SULFATE 220 MG CAP PO (09:23)
[2017-04-18] MEDS: ASCORBIC ACID 500 MG TAB PO ×2 (09:23→21:03)
[2017-04-18] MEDS: MULTIVITAMINS/MINERALS TAB PO (09:23)
[2017-04-18] MEDS: PSYLLIUM (SUGAR FREE) PACKET PO ×2 (09:24→21:03)
[2017-04-18] MEDS: CEFTRIAXONE 2 GM/50 ML (PMX) 50 ML IVPB (09:24)
[2017-04-18] MEDS: ANASTROZOLE 1 MG TAB PO (09:24)
[2017-04-18] MEDS: METOPROLOL 50 MG TAB PO ×2 (09:24→21:02)
[2017-04-18] MEDS: SOD CHLORIDE 0.9% 1,000 ML IV (10:00)
[2017-04-18] MEDS: CASPOFUNGIN 50 MG in NS 250 ML IVPB (12:45)
[2017-04-18] MEDS: FAT EMULSION 20% 250 ML IV (18:49)
[2017-04-18] MEDS: DAPTOMYCIN 460 MG in SOD CHLORIDE 0.9% 100 ML IVPB (20:57)
[2017-04-18] MEDS: INSULIN GLARGINE [LANtus] 3 ML PEN SC (21:01)
[2017-04-18] MEDS: ENOXAPARIN 60 MG/0.6 ML SYG SC (21:01)
[2017-04-18] MEDS: ZOLPIDEM 5 MG TAB PO (22:44)
[2017-04-18] MEDS: FENTAnyl PATCH 12 MCG/HR TRANSDERM (23:34)
[2017-04-19] MEDS: TPN 1,000 ML IV ×2 (01:04→18:40)
[2017-04-19] MEDS: INSULIN ASPART [NOVOLOG] 3 ML PEN SC ×6 (01:08→21:00)
[2017-04-19] MEDS: HYDROmorphONE 2 MG/ML SYG IV ×6 (01:41→18:41)
[2017-04-19] MEDS: ACCU-CHEK XX (02:00)
[2017-04-19] MEDS: SOD CHLORIDE 0.9% 1,000 ML IV ×2 (02:40→04:59)
[2017-04-19] MEDS: PANTOPRAZOLE 40 MG INJ IV (04:54)
[2017-04-19] MEDS: LEVOTHYROXINE 75 MCG TAB PO (04:54)
[2017-04-19] MEDS: VANCOMYCIN HCL 250 MG/5ML POSYG PO ×3 (04:54→17:26)
[2017-04-19] MEDS: OCTREOTIDE 100 MCG INJ SC ×3 (05:14→22:18)
[2017-04-19 08:24] LABS: CREATINE KINASE < 20 IU/L (23-200)
[2017-04-19] MEDS: METOPROLOL 50 MG TAB PO ×2 (09:16→21:34)
[2017-04-19] MEDS: PSYLLIUM (SUGAR FREE) PACKET PO ×2 (09:16→21:48)
[2017-04-19] MEDS: CEFTRIAXONE 2 GM/50 ML (PMX) 50 ML IVPB (09:16)
[2017-04-19] MEDS: MULTIVITAMINS/MINERALS TAB PO (09:16)
[2017-04-19] MEDS: ZINC SULFATE 220 MG CAP PO (09:17)
[2017-04-19] MEDS: CHOLECALCIFEROL 2,000 UNIT CAP PO (09:17)
[2017-04-19] MEDS: ASCORBIC ACID 500 MG TAB PO ×2 (09:17→21:31)
[2017-04-19] MEDS: ANASTROZOLE 1 MG TAB PO (09:23)
[2017-04-19] MEDS: CASPOFUNGIN 50 MG in NS 250 ML IVPB (12:19)
[2017-04-19 19:18] LABS: ANION GAP 9 (8-16); BLOOD UREA NITROGEN 21 mg/dl (7-20); CALCIUM 8.6 mg/dl (8.4-10.2); CARBON DIOXIDE 28 mmol/L (21-31); CHLORIDE 103 mmol/L (97-110); GLUCOSE 144 mg/dl (70-220); MAGNESIUM 1.9 mg/dl (1.7-2.5); PHOSPHORUS 2.5 mg/dl (2.5-4.9); POTASSIUM 4.1 mmol/L (3.5-5.1); SODIUM 136 mmol/L (135-144)
[2017-04-19] MEDS: DAPTOMYCIN 460 MG in SOD CHLORIDE 0.9% 100 ML IVPB (21:48)
[2017-04-19] MEDS: INSULIN GLARGINE [LANtus] 3 ML PEN SC (22:15)
[2017-04-19] MEDS: ENOXAPARIN 60 MG/0.6 ML SYG SC (22:25)
[2017-04-19] MEDS: ZOLPIDEM 5 MG TAB PO (22:36)
[2017-04-20] MEDS: INSULIN ASPART [NOVOLOG] 3 ML PEN SC ×6 (01:00→22:28)
[2017-04-20] MEDS: HYDROmorphONE 2 MG/ML SYG IV ×7 (01:17→22:05)
[2017-04-20] MEDS: VANCOMYCIN HCL 250 MG/5ML POSYG PO ×4 (01:24→18:41)
[2017-04-20] MEDS: TPN 1,000 ML IV ×2 (01:24→18:42)
[2017-04-20] MEDS: ACCU-CHEK XX (02:00)
[2017-04-20 05:51] LABS: ADD MAN DIFF? NO
[2017-04-20 05:53] LABS: WHITE BLOOD COUNT 3.5 10^3/ul (4.8-10.8)
[2017-04-20 05:53] LABS: BASOPHILS % 0.6 % (0.0-2.0); EOSINOPHILS # 0.1 10^3/ul (0.0-0.5); EOSINOPHILS % 3.5 % (0.0-7.0); HEMATOCRIT 26.1 % (37.0-47.0); HEMOGLOBIN 8.1 g/dl (12.0-16.0); LYMPHOCYTES # 1.4 10^3/ul (0.8-2.9); LYMPHOCYTES % 41.7 % (15.0-51.0); MEAN CORPUSCULAR HEMOGLOBIN 26.9 pg (29.0-33.0); MEAN CORPUSCULAR VOLUME 86.7 fl (82.0-101.0); MEAN PLATELET VOLUME 9.8 fl (7.4-10.4); MONOCYTE # 0.3 10^3/ul (0.3-0.9); MONOCYTES % 9.6 % (0.0-11.0); NEUTROPHIL # 1.5 10^3/ul (1.6-7.5); NEUTROPHILS % 43.7 % (39.0-77.0); PLATELET COUNT 149 10^3/UL (140-415); RED BLOOD COUNT 3.01 10^6/ul (4.20-5.40); RED CELL DISTRIBUTION WIDTH 15.7 % (11.5-14.5)
[2017-04-20] MEDS: PANTOPRAZOLE 40 MG INJ IV (05:56)
[2017-04-20] MEDS: OCTREOTIDE 100 MCG INJ SC ×3 (05:56→22:10)
[2017-04-20] MEDS: LEVOTHYROXINE 75 MCG TAB PO (06:01)
[2017-04-20 07:04] LABS: ANION GAP 8 (8-16); BLOOD UREA NITROGEN 22 mg/dl (7-20); CALCIUM 8.1 mg/dl (8.4-10.2); CARBON DIOXIDE 30 mmol/L (21-31); CHLORIDE 104 mmol/L (97-110); CREATININE 0.67 mg/dl (0.44-1.00); GLUCOSE 167 mg/dl (70-220); POTASSIUM 4.2 mmol/L (3.5-5.1); SODIUM 138 mmol/L (135-144)
[2017-04-20] MEDS: ZINC SULFATE 220 MG CAP PO (08:05)
[2017-04-20] MEDS: CHOLECALCIFEROL 2,000 UNIT CAP PO (08:05)
[2017-04-20] MEDS: PSYLLIUM (SUGAR FREE) PACKET PO ×2 (08:06→22:36)
[2017-04-20] MEDS: ASCORBIC ACID 500 MG TAB PO ×2 (08:06→22:35)
[2017-04-20] MEDS: MULTIVITAMINS/MINERALS TAB PO (08:06)
[2017-04-20] MEDS: CEFTRIAXONE 2 GM/50 ML (PMX) 50 ML IVPB (08:07)
[2017-04-20] MEDS: ANASTROZOLE 1 MG TAB PO (08:09)
[2017-04-20] MEDS: CASPOFUNGIN 50 MG in NS 250 ML IVPB (11:27)
[2017-04-20] MEDS: METOPROLOL 50 MG TAB PO ×2 (11:28→22:36)
[2017-04-20] MEDS: SOD CHLORIDE 0.9% 1,000 ML IV ×2 (12:00→21:59)
[2017-04-20] MEDS: FAT EMULSION 20% 250 ML IV (18:43)
[2017-04-20] MEDS: DAPTOMYCIN 460 MG in SOD CHLORIDE 0.9% 100 ML IVPB (22:05)
[2017-04-20] MEDS: ENOXAPARIN 60 MG/0.6 ML SYG SC (22:16)
[2017-04-20] MEDS: INSULIN GLARGINE [LANtus] 3 ML PEN SC (22:27)
[2017-04-20] MEDS: ZOLPIDEM 5 MG TAB PO (22:35)
[2017-04-21] MEDS: VANCOMYCIN HCL 250 MG/5ML POSYG PO ×5 (00:30→23:40)
[2017-04-21] MEDS: INSULIN ASPART [NOVOLOG] 3 ML PEN SC ×6 (01:00→20:38)
[2017-04-21] MEDS: HYDROmorphONE 2 MG/ML SYG IV ×10 (01:07→23:40)
[2017-04-21] MEDS: TPN 1,000 ML IV ×2 (01:11→18:44)
[2017-04-21] MEDS: ACCU-CHEK XX (01:33)
[2017-04-21] MEDS: PANTOPRAZOLE 40 MG INJ IV (05:51)
[2017-04-21] MEDS: LEVOTHYROXINE 75 MCG TAB PO (05:51)
[2017-04-21] MEDS: OCTREOTIDE 100 MCG INJ SC ×3 (05:52→22:09)
[2017-04-21] MEDS: ZINC SULFATE 220 MG CAP PO (09:02)
[2017-04-21] MEDS: CHOLECALCIFEROL 2,000 UNIT CAP PO (09:02)
[2017-04-21] MEDS: MULTIVITAMINS/MINERALS TAB PO (09:02)
[2017-04-21] MEDS: ASCORBIC ACID 500 MG TAB PO ×2 (09:02→20:45)
[2017-04-21] MEDS: METOPROLOL 50 MG TAB PO ×2 (09:02→20:45)
[2017-04-21] MEDS: PSYLLIUM (SUGAR FREE) PACKET PO ×2 (09:03→20:46)
[2017-04-21] MEDS: ANASTROZOLE 1 MG TAB PO (09:07)
[2017-04-21] MEDS: CEFTRIAXONE 2 GM/50 ML (PMX) 50 ML IVPB (09:08)
[2017-04-21] MEDS: SOD CHLORIDE 0.9% 1,000 ML IV (15:40)
[2017-04-21 17:02] LABS: PROCALCITONIN 0.32 ng/mL (<0.10)
[2017-04-21] MEDS: DAPTOMYCIN 460 MG in SOD CHLORIDE 0.9% 100 ML IVPB (20:46)
[2017-04-21] MEDS: INSULIN GLARGINE [LANtus] 3 ML PEN SC (21:03)
[2017-04-21] MEDS: ENOXAPARIN 60 MG/0.6 ML SYG SC (22:18)
[2017-04-21] MEDS: FENTAnyl PATCH 12 MCG/HR TRANSDERM (23:47)
[2017-04-22] MEDS: INSULIN ASPART [NOVOLOG] 3 ML PEN SC ×6 (01:00→21:00)
[2017-04-22] MEDS: TPN 1,000 ML IV ×2 (01:20→18:25)
[2017-04-22] MEDS: ACCU-CHEK XX (02:00)
[2017-04-22] MEDS: HYDROmorphONE 2 MG/ML SYG IV ×7 (02:36→21:23)
[2017-04-22] MEDS: ZOLPIDEM 5 MG TAB PO ×2 (02:41→21:56)
[2017-04-22 05:31] LABS: ADD MAN DIFF? NO
[2017-04-22 05:33] LABS: BASOPHILS % 0.6 % (0.0-2.0); EOSINOPHILS # 0.1 10^3/ul (0.0-0.5); EOSINOPHILS % 2.4 % (0.0-7.0); HEMATOCRIT 26.5 % (37.0-47.0); HEMOGLOBIN 8.4 g/dl (12.0-16.0); LYMPHOCYTES # 1.4 10^3/ul (0.8-2.9); MEAN CORPUSCULAR HEMOGLOBIN 27.8 pg (29.0-33.0); MEAN CORPUSCULAR HGB CONC 31.7 g/dl (32.0-37.0); MEAN CORPUSCULAR VOLUME 87.7 fl (82.0-101.0); MEAN PLATELET VOLUME 10.5 fl (7.4-10.4); MONOCYTE # 0.3 10^3/ul (0.3-0.9); MONOCYTES % 9.7 % (0.0-11.0); NEUTROPHIL # 1.6 10^3/ul (1.6-7.5); PLATELET COUNT 156 10^3/UL (140-415); RED BLOOD COUNT 3.02 10^6/ul (4.20-5.40); RED CELL DISTRIBUTION WIDTH 15.9 % (11.5-14.5)
[2017-04-22 05:33] LABS: WHITE BLOOD COUNT 3.4 10^3/ul (4.8-10.8)
[2017-04-22] MEDS: PANTOPRAZOLE 40 MG INJ IV (05:47)
[2017-04-22] MEDS: LEVOTHYROXINE 75 MCG TAB PO (05:50)
[2017-04-22] MEDS: VANCOMYCIN HCL 250 MG/5ML POSYG PO ×3 (05:50→18:25)
[2017-04-22] MEDS: OCTREOTIDE 100 MCG INJ SC ×3 (05:53→21:33)
[2017-04-22 06:05] LABS: ANION GAP 9 (8-16); BLOOD UREA NITROGEN 22 mg/dl (7-20); CALCIUM 8.1 mg/dl (8.4-10.2); CARBON DIOXIDE 28 mmol/L (21-31); CHLORIDE 107 mmol/L (97-110); CREATININE 0.65 mg/dl (0.44-1.00); GLUCOSE 141 mg/dl (70-220); POTASSIUM 4.6 mmol/L (3.5-5.1); SODIUM 139 mmol/L (135-144)
[2017-04-22] MEDS: ZINC SULFATE 220 MG CAP PO (08:57)
[2017-04-22] MEDS: ASCORBIC ACID 500 MG TAB PO ×2 (08:57→21:26)
[2017-04-22] MEDS: MULTIVITAMINS/MINERALS TAB PO (08:57)
[2017-04-22] MEDS: CHOLECALCIFEROL 2,000 UNIT CAP PO (08:57)
[2017-04-22] MEDS: CEFTRIAXONE 2 GM/50 ML (PMX) 50 ML IVPB (08:57)
[2017-04-22] MEDS: PSYLLIUM (SUGAR FREE) PACKET PO ×2 (08:58→21:00)
[2017-04-22] MEDS: METOPROLOL 50 MG TAB PO ×2 (08:59→21:28)
[2017-04-22] MEDS: ANASTROZOLE 1 MG TAB PO (09:05)
[2017-04-22] MEDS: SOD CHLORIDE 0.9% 1,000 ML IV ×2 (11:04→13:05)
[2017-04-22] MEDS: FAT EMULSION 20% 250 ML IV (18:25)
[2017-04-22] MEDS: INSULIN DETEMIR [LEVEMIR] 3ML CART SC (18:33)
[2017-04-22] MEDS: DAPTOMYCIN 460 MG in SOD CHLORIDE 0.9% 100 ML IVPB (21:25)
[2017-04-22] MEDS: ENOXAPARIN 60 MG/0.6 ML SYG SC (21:43)
[2017-04-23] MEDS: VANCOMYCIN HCL 250 MG/5ML POSYG PO ×4 (00:37→18:33)
[2017-04-23] MEDS: HYDROmorphONE 2 MG/ML SYG IV ×8 (00:38→21:32)
[2017-04-23] MEDS: INSULIN ASPART [NOVOLOG] 3 ML PEN SC ×6 (00:42→21:33)
[2017-04-23] MEDS: TPN 1,000 ML IV ×2 (01:36→19:37)
[2017-04-23] MEDS: ACCU-CHEK XX (02:00)
[2017-04-23 05:49] LABS: WHITE BLOOD COUNT 2.8 10^3/ul (4.8-10.8)
[2017-04-23 05:49] LABS: HEMATOCRIT 36.9 % (37.0-47.0); HEMOGLOBIN 11.6 g/dl (12.0-16.0); MEAN CORPUSCULAR HEMOGLOBIN 27.4 pg (29.0-33.0); MEAN CORPUSCULAR HGB CONC 31.4 g/dl (32.0-37.0); MEAN PLATELET VOLUME 9.9 fl (7.4-10.4); PLATELET COUNT 134 10^3/UL (140-415); RED BLOOD COUNT 4.24 10^6/ul (4.20-5.40); RED CELL DISTRIBUTION WIDTH 15.9 % (11.5-14.5)
[2017-04-23 06:27] LABS: ANION GAP 11 (8-16); BLOOD UREA NITROGEN 19 mg/dl (7-20); CALCIUM 8.4 mg/dl (8.4-10.2); CARBON DIOXIDE 26 mmol/L (21-31); CHLORIDE 106 mmol/L (97-110); CREATININE 0.71 mg/dl (0.44-1.00); GLUCOSE 153 mg/dl (70-220); POTASSIUM 4.3 mmol/L (3.5-5.1); SODIUM 139 mmol/L (135-144)
[2017-04-23] MEDS: OCTREOTIDE 100 MCG INJ SC ×3 (06:35→21:32)
[2017-04-23] MEDS: PANTOPRAZOLE 40 MG INJ IV (06:35)
[2017-04-23] MEDS: LEVOTHYROXINE 75 MCG TAB PO (06:35)
[2017-04-23] MEDS: SOD CHLORIDE 0.9% 1,000 ML IV (06:36)
[2017-04-23] MEDS: ONDANSETRON 4 MG INJ IV (06:54)
[2017-04-23 07:05] LABS: ADD MAN DIFF? YES
[2017-04-23] MEDS: ZINC SULFATE 220 MG CAP PO (08:41)
[2017-04-23] MEDS: CHOLECALCIFEROL 2,000 UNIT CAP PO (08:41)
[2017-04-23] MEDS: ASCORBIC ACID 500 MG TAB PO ×2 (08:42→21:24)
[2017-04-23] MEDS: METOPROLOL 50 MG TAB PO ×2 (08:42→21:23)
[2017-04-23] MEDS: MULTIVITAMINS/MINERALS TAB PO (08:42)
[2017-04-23] MEDS: CEFTRIAXONE 2 GM/50 ML (PMX) 50 ML IVPB (08:43)
[2017-04-23] MEDS: PSYLLIUM (SUGAR FREE) PACKET PO ×2 (08:43→21:24)
[2017-04-23] MEDS: ANASTROZOLE 1 MG TAB PO (08:45)
[2017-04-23] MEDS: INSULIN DETEMIR [LEVEMIR] 3ML CART SC (18:44)
[2017-04-23] MEDS: DAPTOMYCIN 460 MG in SOD CHLORIDE 0.9% 100 ML IVPB (19:50)
[2017-04-23] MEDS: NYSTATIN 30 GM POWDER BTL TOP (21:24)
[2017-04-23] MEDS: ENOXAPARIN 60 MG/0.6 ML SYG SC (21:34)
[2017-04-23] MEDS: ZOLPIDEM 5 MG TAB PO (21:52)
[2017-04-23] MEDS: CLONIDINE 0.1 MG/24 HR PATCH TRANSDERM (21:57)
[2017-04-24] MEDS: VANCOMYCIN HCL 250 MG/5ML POSYG PO ×4 (00:31→18:18)
[2017-04-24] MEDS: HYDROmorphONE 2 MG/ML SYG IV ×8 (00:31→22:31)
[2017-04-24] MEDS: SOD CHLORIDE 0.9% 1,000 ML IV ×2 (00:51→15:45)
[2017-04-24] MEDS: INSULIN ASPART [NOVOLOG] 3 ML PEN SC ×6 (00:54→21:00)
[2017-04-24] MEDS: TPN 1,000 ML IV ×2 (01:40→18:21)
[2017-04-24] MEDS: ACCU-CHEK XX (02:00)
[2017-04-24] MEDS: PANTOPRAZOLE 40 MG INJ IV (05:08)
[2017-04-24 05:51] LABS: ADD MAN DIFF? NO
[2017-04-24 06:00] LABS: WHITE BLOOD COUNT 3.3 10^3/ul (4.8-10.8)
[2017-04-24 06:00] LABS: BASOPHILS % 0.3 % (0.0-2.0); EOSINOPHILS # 0.1 10^3/ul (0.0-0.5); EOSINOPHILS % 2.1 % (0.0-7.0); HEMATOCRIT 24.3 % (37.0-47.0); HEMOGLOBIN 7.7 g/dl (12.0-16.0); LYMPHOCYTES % 29.8 % (15.0-51.0); MEAN CORPUSCULAR HEMOGLOBIN 27.7 pg (29.0-33.0); MEAN CORPUSCULAR HGB CONC 31.7 g/dl (32.0-37.0); MEAN CORPUSCULAR VOLUME 87.4 fl (82.0-101.0); MEAN PLATELET VOLUME 10.3 fl (7.4-10.4); MONOCYTE # 0.3 10^3/ul (0.3-0.9); MONOCYTES % 9.7 % (0.0-11.0); NEUTROPHIL # 1.9 10^3/ul (1.6-7.5); NEUTROPHILS % 57.5 % (39.0-77.0); PLATELET COUNT 142 10^3/UL (140-415); RED BLOOD COUNT 2.78 10^6/ul (4.20-5.40); RED CELL DISTRIBUTION WIDTH 15.7 % (11.5-14.5)
[2017-04-24] MEDS: LEVOTHYROXINE 75 MCG TAB PO (06:35)
[2017-04-24] MEDS: OCTREOTIDE 100 MCG INJ SC ×3 (06:35→22:35)
[2017-04-24] MEDS: ONDANSETRON 4 MG INJ IV (06:41)
[2017-04-24 06:59] LABS: ANION GAP 12 (8-16); BLOOD UREA NITROGEN 20 mg/dl (7-20); CALCIUM 8.2 mg/dl (8.4-10.2); CARBON DIOXIDE 26 mmol/L (21-31); CHLORIDE 105 mmol/L (97-110); GLUCOSE 165 mg/dl (70-220); POTASSIUM 4.8 mmol/L (3.5-5.1); SODIUM 138 mmol/L (135-144)
[2017-04-24 07:11] LABS: MAGNESIUM 1.8 mg/dl (1.7-2.5)
[2017-04-24 07:11] LABS: PHOSPHORUS 4.2 mg/dl (2.5-4.9)
[2017-04-24] MEDS: ANASTROZOLE 1 MG TAB PO ×2 (09:00→12:59)
[2017-04-24] MEDS: PSYLLIUM (SUGAR FREE) PACKET PO ×2 (09:11→21:02)
[2017-04-24] MEDS: ASCORBIC ACID 500 MG TAB PO ×2 (09:11→21:02)
[2017-04-24] MEDS: MULTIVITAMINS/MINERALS TAB PO (09:11)
[2017-04-24] MEDS: ZINC SULFATE 220 MG CAP PO (09:11)
[2017-04-24] MEDS: CHOLECALCIFEROL 2,000 UNIT CAP PO (09:11)
[2017-04-24] MEDS: METOPROLOL 50 MG TAB PO ×2 (09:12→21:05)
[2017-04-24] MEDS: CEFTRIAXONE 2 GM/50 ML (PMX) 50 ML IVPB (09:22)
[2017-04-24] MEDS: NYSTATIN 30 GM POWDER BTL TOP ×2 (09:23→21:15)
[2017-04-24 11:46] LABS: PREALBUMIN 15.1 mg/dl (17.6-36.0)
[2017-04-24 14:51] LABS: HEMATOCRIT 31.4 % (37.0-47.0)
[2017-04-24] MEDS: FAT EMULSION 20% 250 ML IV (18:21)
[2017-04-24] MEDS: ZOLPIDEM 5 MG TAB PO (21:02)
[2017-04-24] MEDS: INSULIN DETEMIR [LEVEMIR] 3ML CART SC (21:10)
[2017-04-24] MEDS: DAPTOMYCIN 460 MG in SOD CHLORIDE 0.9% 100 ML IVPB (22:34)
[2017-04-24] MEDS: ENOXAPARIN 60 MG/0.6 ML SYG SC (22:37)
[2017-04-25] MEDS: VANCOMYCIN HCL 250 MG/5ML POSYG PO ×4 (00:22→17:06)
[2017-04-25] MEDS: INSULIN ASPART [NOVOLOG] 3 ML PEN SC ×6 (00:34→20:43)
[2017-04-25] MEDS: TPN 1,000 ML IV ×2 (00:37→18:59)
[2017-04-25] MEDS: FENTAnyl PATCH 12 MCG/HR TRANSDERM (00:53)
[2017-04-25] MEDS: HYDROmorphONE 2 MG/ML SYG IV ×8 (01:26→23:24)
[2017-04-25] MEDS: ACCU-CHEK XX (01:33)
[2017-04-25 05:41] LABS: ADD MAN DIFF? NO
[2017-04-25 05:52] LABS: WHITE BLOOD COUNT 2.8 10^3/ul (4.8-10.8)
[2017-04-25 05:52] LABS: BASOPHILS % 0.4 % (0.0-2.0); EOSINOPHILS # 0.1 10^3/ul (0.0-0.5); EOSINOPHILS % 2.9 % (0.0-7.0); HEMATOCRIT 24.5 % (37.0-47.0); HEMOGLOBIN 7.7 g/dl (12.0-16.0); LYMPHOCYTES # 1.1 10^3/ul (0.8-2.9); MEAN CORPUSCULAR HEMOGLOBIN 27.5 pg (29.0-33.0); MEAN CORPUSCULAR HGB CONC 31.4 g/dl (32.0-37.0); MEAN CORPUSCULAR VOLUME 87.5 fl (82.0-101.0); MEAN PLATELET VOLUME 10.9 fl (7.4-10.4); MONOCYTE # 0.3 10^3/ul (0.3-0.9); MONOCYTES % 11.5 % (0.0-11.0); NEUTROPHIL # 1.2 10^3/ul (1.6-7.5); NEUTROPHILS % 43.1 % (39.0-77.0); PLATELET COUNT 126 10^3/UL (140-415); RED CELL DISTRIBUTION WIDTH 15.7 % (11.5-14.5)
[2017-04-25 06:11] LABS: ANION GAP 12 (8-16); BLOOD UREA NITROGEN 18 mg/dl (7-20); CALCIUM 7.3 mg/dl (8.4-10.2); CARBON DIOXIDE 21 mmol/L (21-31); CHLORIDE 111 mmol/L (97-110); CREATININE 0.64 mg/dl (0.44-1.00); GLUCOSE 142 mg/dl (70-220); POTASSIUM 3.7 mmol/L (3.5-5.1); SODIUM 140 mmol/L (135-144)
[2017-04-25] MEDS: LEVOTHYROXINE 75 MCG TAB PO (07:16)
[2017-04-25] MEDS: PANTOPRAZOLE 40 MG INJ IV (07:16)
[2017-04-25] MEDS: ASCORBIC ACID 500 MG TAB PO ×2 (09:33→20:35)
[2017-04-25] MEDS: CHOLECALCIFEROL 2,000 UNIT CAP PO (09:33)
[2017-04-25] MEDS: METOPROLOL 50 MG TAB PO ×2 (09:34→20:36)
[2017-04-25] MEDS: MULTIVITAMINS/MINERALS TAB PO (09:34)
[2017-04-25] MEDS: PSYLLIUM (SUGAR FREE) PACKET PO ×2 (09:35→21:00)
[2017-04-25] MEDS: CEFTRIAXONE 2 GM/50 ML (PMX) 50 ML IVPB (09:35)
[2017-04-25] MEDS: ANASTROZOLE 1 MG TAB PO (09:37)
[2017-04-25] MEDS: ZINC SULFATE 220 MG CAP PO (09:41)
[2017-04-25] MEDS: NYSTATIN 30 GM POWDER BTL TOP ×2 (09:41→20:38)
[2017-04-25] MEDS: SOD CHLORIDE 0.9% 1,000 ML IV (12:47)
[2017-04-25] MEDS: OCTREOTIDE 100 MCG INJ SC ×2 (13:48→23:30)
[2017-04-25] MEDS: CEPASTAT LOZENGE MT (17:06)
[2017-04-25] MEDS: INSULIN DETEMIR [LEVEMIR] 3ML CART SC (17:46)
[2017-04-25] MEDS: DAPTOMYCIN 460 MG in SOD CHLORIDE 0.9% 100 ML IVPB (20:31)
[2017-04-25] MEDS: ENOXAPARIN 60 MG/0.6 ML SYG SC (23:30)
[2017-04-25] MEDS: ZOLPIDEM 5 MG TAB PO (23:40)
[2017-04-26] MEDS: INSULIN ASPART [NOVOLOG] 3 ML PEN SC ×6 (01:00→21:24)
[2017-04-26] MEDS: SOD CHLORIDE 0.9% 1,000 ML IV ×3 (01:20→22:33)
[2017-04-26] MEDS: ACCU-CHEK XX (01:37)
[2017-04-26] MEDS: HYDROmorphONE 2 MG/ML SYG IV ×7 (02:26→22:27)
[2017-04-26] MEDS: TPN 1,000 ML IV ×2 (02:30→18:19)
[2017-04-26 05:15] LABS: ADD MAN DIFF? NO
[2017-04-26 05:19] LABS: BASOPHILS % 0.7 % (0.0-2.0); EOSINOPHILS # 0.1 10^3/ul (0.0-0.5); EOSINOPHILS % 2.8 % (0.0-7.0); LYMPHOCYTES # 0.9 10^3/ul (0.8-2.9); LYMPHOCYTES % 32.7 % (15.0-51.0); MEAN CORPUSCULAR HEMOGLOBIN 27.6 pg (29.0-33.0); MEAN CORPUSCULAR HGB CONC 32.1 g/dl (32.0-37.0); MEAN CORPUSCULAR VOLUME 85.9 fl (82.0-101.0); MEAN PLATELET VOLUME 10.4 fl (7.4-10.4); MONOCYTE # 0.3 10^3/ul (0.3-0.9); MONOCYTES % 9.5 % (0.0-11.0); NEUTROPHIL # 1.5 10^3/ul (1.6-7.5); NEUTROPHILS % 53.9 % (39.0-77.0); PLATELET COUNT 123 10^3/UL (140-415); RED BLOOD COUNT 3.26 10^6/ul (4.20-5.40); RED CELL DISTRIBUTION WIDTH 15.9 % (11.5-14.5)
[2017-04-26 05:19] LABS: WHITE BLOOD COUNT 2.8 10^3/ul (4.8-10.8)
[2017-04-26] MEDS: PANTOPRAZOLE 40 MG INJ IV (05:47)
[2017-04-26] MEDS: LEVOTHYROXINE 75 MCG TAB PO (05:47)
[2017-04-26] MEDS: OCTREOTIDE 100 MCG INJ SC ×3 (05:48→21:18)
[2017-04-26] MEDS: PSYLLIUM (SUGAR FREE) PACKET PO ×2 (05:48→21:17)
[2017-04-26 06:17] LABS: ANION GAP 14 (8-16); BLOOD UREA NITROGEN 19 mg/dl (7-20); CALCIUM 8.7 mg/dl (8.4-10.2); CARBON DIOXIDE 27 mmol/L (21-31); CHLORIDE 102 mmol/L (97-110); CREATININE 0.72 mg/dl (0.44-1.00); GLUCOSE 198 mg/dl (70-220); MAGNESIUM 1.9 mg/dl (1.7-2.5); PHOSPHORUS 3.7 mg/dl (2.5-4.9); POTASSIUM 4.5 mmol/L (3.5-5.1); SODIUM 138 mmol/L (135-144)
[2017-04-26] MEDS: ASCORBIC ACID 500 MG TAB PO ×2 (08:31→21:17)
[2017-04-26] MEDS: CHOLECALCIFEROL 2,000 UNIT CAP PO (08:31)
[2017-04-26] MEDS: ZINC SULFATE 220 MG CAP PO (08:31)
[2017-04-26] MEDS: METOPROLOL 50 MG TAB PO ×2 (08:31→21:18)
[2017-04-26] MEDS: MULTIVITAMINS/MINERALS TAB PO (08:31)
[2017-04-26] MEDS: NYSTATIN 30 GM POWDER BTL TOP ×2 (08:32→21:17)
[2017-04-26] MEDS: ANASTROZOLE 1 MG TAB PO (08:40)
[2017-04-26] MEDS: INSULIN DETEMIR [LEVEMIR] 3ML CART SC (17:50)
[2017-04-26] MEDS: FAT EMULSION 20% 250 ML IV (18:19)
[2017-04-26] MEDS: ENOXAPARIN 60 MG/0.6 ML SYG SC (21:27)
[2017-04-26] MEDS: ZOLPIDEM 5 MG TAB PO (23:07)
[2017-04-27] MEDS: INSULIN ASPART [NOVOLOG] 3 ML PEN SC ×6 (00:20→21:00)
[2017-04-27] MEDS: HYDROmorphONE 2 MG/ML SYG IV ×6 (01:31→18:19)
[2017-04-27] MEDS: TPN 1,000 ML IV ×2 (01:46→19:00)
[2017-04-27] MEDS: ACCU-CHEK XX (02:00)
[2017-04-27] MEDS: OCTREOTIDE 100 MCG INJ SC ×2 (05:25→14:39)
[2017-04-27] MEDS: LEVOTHYROXINE 75 MCG TAB PO (05:25)
[2017-04-27] MEDS: PANTOPRAZOLE 40 MG INJ IV (05:26)
[2017-04-27 05:51] LABS: ANION GAP 12 (8-16); BLOOD UREA NITROGEN 21 mg/dl (7-20); CALCIUM 8.1 mg/dl (8.4-10.2); CARBON DIOXIDE 25 mmol/L (21-31); CHLORIDE 105 mmol/L (97-110); CREATININE 0.71 mg/dl (0.44-1.00); GLUCOSE 192 mg/dl (70-220); MAGNESIUM 1.9 mg/dl (1.7-2.5); PHOSPHORUS 3.4 mg/dl (2.5-4.9); POTASSIUM 4.3 mmol/L (3.5-5.1); SODIUM 138 mmol/L (135-144)
[2017-04-27] MEDS: ASCORBIC ACID 500 MG TAB PO (09:17)
[2017-04-27] MEDS: MULTIVITAMINS/MINERALS TAB PO (09:17)
[2017-04-27] MEDS: ZINC SULFATE 220 MG CAP PO (09:17)
[2017-04-27] MEDS: METOPROLOL 50 MG TAB PO (09:17)
[2017-04-27] MEDS: CHOLECALCIFEROL 2,000 UNIT CAP PO (09:17)
[2017-04-27] MEDS: NYSTATIN 30 GM POWDER BTL TOP (09:18)
[2017-04-27] MEDS: PSYLLIUM (SUGAR FREE) PACKET PO (09:18)
[2017-04-27] MEDS: ANASTROZOLE 1 MG TAB PO (09:25)
[2017-04-27] MEDS: INSULIN DETEMIR [LEVEMIR] 3ML CART SC (18:32)
[2017-04-27] MEDS ORDERED: ASCORBIC ACID 500 MG TAB PO (21:40)
[2017-04-27] MEDS ORDERED: PSYLLIUM (SUGAR FREE) PACKET PO (21:40)
[2017-04-27] MEDS ORDERED: METOPROLOL 50 MG TAB PO (21:40)
[2017-04-27] MEDS ORDERED: HYDROmorphONE 2 MG/ML SYG IV (21:40)
[2017-04-27] MEDS ORDERED: ZOLPIDEM 5 MG TAB PO (21:40)
[2017-04-27] MEDS: ENOXAPARIN 60 MG/0.6 ML SYG SC (22:44)
[2017-04-27] MEDS: ACETAMINOPHEN 325 MG TAB PO (22:44)
== END 2017-04-27 23:16 | disposition home health service (06) | DRG 872 ==
LOC: MS1 19:38 → E/R 12:32 → ICU 04-10 05:40 → MS1 04-10 19:40
PROC: 02HV33Z Insertion of Infusion Device into Superior Vena Cava, Percutaneous Approach (ICD-10-PCS; principal; 2017-04-17)
DX: A41.9 Sepsis, unspecified organism (principal); D61.818 Other pancytopenia; K63.2 Fistula of intestine; C79.51 Secondary malignant neoplasm of bone; C50.919 Malignant neoplasm of unspecified site of unspecified female breast; I82.712 Chronic embolism and thrombosis of superficial veins of left upper extremity; E11.65 Type 2 diabetes mellitus with hyperglycemia; E66.01 Morbid (severe) obesity due to excess calories; E03.9 Hypothyroidism, unspecified; K52.9 Noninfective gastroenteritis and colitis, unspecified; D50.9 Iron deficiency anemia, unspecified; B96.1 Klebsiella pneumoniae [K. pneumoniae] as the cause of diseases classified elsewhere; B95.2 Enterococcus as the cause of diseases classified elsewhere; Z16.21 Resistance to vancomycin; R51 Headache; R10.84 Generalized abdominal pain; G89.29 Other chronic pain; J02.9 Acute pharyngitis, unspecified; Z68.34 Body mass index [BMI] 34.0-34.9, adult; Z90.11 Acquired absence of right breast and nipple; Z87.440 Personal history of urinary (tract) infections; Z98.84 Bariatric surgery status; Z91.14 Patient's other noncompliance with medication regimen; Z79.4 Long term (current) use of insulin; Z79.01 Long term (current) use of anticoagulants
CPT/HCPCS: 36415; 36569; 70450; 70553; 71010; 71045; 72050; 74177; 80048; 80053; 80076; 80202; 81001; 81003; 82550; 82962; 83605; 83735; 84100; 84134; 84145; 84478; 84484; 85014; 85018; 85025; 85610; 85651; 85730; 87040; 87081; 87086; 87400; 87880; 93005; 93971; 96365; 96372; 96375; 96376; 99285-25

== ENCOUNTER 2017-04-29 23:34 | Inpatient (IN) | payer BC ==
[2017-04-30 01:48] LABS: ADD MAN DIFF? NO
[2017-04-30 01:56] LABS: WHITE BLOOD COUNT 2.5 10^3/ul (4.8-10.8)
[2017-04-30 01:56] LABS: ABNORMAL IP MESSAGE 1; BASOPHILS % 0.4 % (0.0-2.0); HEMOGLOBIN 10.7 g/dl (12.0-16.0); LYMPHOCYTES # 0.2 10^3/ul (0.8-2.9); LYMPHOCYTES % 8.3 % (15.0-51.0); MEAN CORPUSCULAR HEMOGLOBIN 27.6 pg (29.0-33.0); MEAN CORPUSCULAR HGB CONC 32.4 g/dl (32.0-37.0); MEAN CORPUSCULAR VOLUME 85.3 fl (82.0-101.0); MEAN PLATELET VOLUME 10.8 fl (7.4-10.4); MONOCYTE # 0.1 10^3/ul (0.3-0.9); NEUTROPHIL # 2.2 10^3/ul (1.6-7.5); NEUTROPHILS % 86.9 % (39.0-77.0); PLATELET COUNT 110 10^3/UL (140-415); RED BLOOD COUNT 3.87 10^6/ul (4.20-5.40); RED CELL DISTRIBUTION WIDTH 15.6 % (11.5-14.5)
[2017-04-30 02:00] LABS: POSITIVE DIFF @See below
[2017-04-30] MEDS: ACETAMINOPHEN 325 MG TAB PO ×4 (02:08→21:04)
[2017-04-30] MEDS: SODIUM CHLORIDE 0.9% 1L BAG IV* (02:09)
[2017-04-30] MEDS: ONDANSETRON 4 MG INJ IV (02:09)
[2017-04-30] MEDS: morphine 2 MG INJ IV (02:10)
[2017-04-30] MEDS: CEFEPIME 2GM/50 ML (PMX) 50 ML IVPB (02:10)
[2017-04-30 02:13] LABS: INR 1.23; PROTIME 15.7 Sec (11.9-14.9); PT RATIO 1.2
[2017-04-30 02:14] LABS: PARTIAL THROMBOPLASTIN TIME 43.4 Sec (25.0-35.0)
[2017-04-30 02:19] LABS: LACTIC ACID 2.8 mmol/L (0.5-2.0)
[2017-04-30 02:28] LABS: TROPONIN-I 0.032 ng/ml (0.00-0.12)
[2017-04-30 02:40] LABS: ALANINE AMINOTRANSFERASE 71 IU/L (13-69); ALBUMIN 3.5 g/dl (3.3-4.9); ALBUMIN/GLOBULIN RATIO 0.76; ALKALINE PHOSPHATASE 190 IU/L (42-121); ANION GAP 17 (8-16); ASPARTATE AMINO TRANSFERASE 63 IU/L (15-46); BILIRUBIN,INDIRECT 0.4 mg/dl (0-1.1); BILIRUBIN,TOTAL 0.4 mg/dl (0.2-1.3); BLOOD UREA NITROGEN 28 mg/dl (7-20); CALCIUM 9.2 mg/dl (8.4-10.2); CARBON DIOXIDE 21 mmol/L (21-31); CHLORIDE 106 mmol/L (97-110); CREATININE 0.96 mg/dl (0.44-1.00); GLUCOSE 170 mg/dl (70-220); POTASSIUM 3.4 mmol/L (3.5-5.1); SODIUM 141 mmol/L (135-144); TOTAL PROTEIN 8.1 g/dl (6.1-8.1)
[2017-04-30] MEDS: HYDROmorphONE 1 MG/ML SYG IV ×2 (03:07→06:03)
[2017-04-30 04:21] LABS: ADD UMIC YES; UR ASCORBIC ACID 40 mg/dL (NEGATIVE); UR BILIRUBIN (Dip) NEGATIVE (NEGATIVE); UR BLOOD (Dip) NEGATIVE (NEGATIVE); UR CLARITY SLIGHTLY CLOUDY (CLEAR); UR COLOR YELLOW (YELLOW); UR GLUCOSE (Dip) 1+ mg/dL (NEGATIVE); UR KETONES (Dip) NEGATIVE (NEGATIVE); UR LEUKOCYTE ESTERASE (Dip) TRACE Leu/ul (NEGATIVE); UR NITRITE (Dip) NEGATIVE (NEGATIVE); UR RBC 2 /HPF (0-5); UR SPECIFIC GRAVITY (Dip) 1.021 (1.003-1.030); UR SQUAMOUS EPITHELIAL CELL FEW /HPF (FEW); UR TOTAL PROTEIN (Dip) 2+ mg/dl (NEGATIVE); UR UROBILINOGEN (Dip) NEGATIVE (NEGATIVE); UR WBC 17 /HPF (0-5)
[2017-04-30 05:36] LABS: LACTIC ACID 1.1 mmol/L (0.5-2.0)
[2017-04-30] MEDS ORDERED: ONDANSETRON 4 MG INJ IV (07:00)
[2017-04-30] MEDS: SOD CHLORIDE 0.9% 1,000 ML IV ×3 (08:44→22:37)
[2017-04-30] MEDS: METOCLOPRAMIDE 10 MG INJ IV (08:44)
[2017-04-30] MEDS: DIPHENHYDRAMINE 50 MG INJ IV (08:45)
[2017-04-30] MEDS ORDERED: morphine 2 MG INJ IV (13:00)
[2017-04-30] MEDS ORDERED: NACL 0.9% 3 ML SYG IV (13:00)
[2017-04-30] MEDS ORDERED: HYDROmorphONE 2 MG TAB PO (13:00)
[2017-04-30] MEDS ORDERED: HYDROmorphONE 2 MG/ML SYG IV (14:00)
[2017-04-30] MEDS: FENTAnyl PATCH 12 MCG/HR TRANSDERM (14:38)
[2017-04-30] MEDS: CLONIDINE 0.1 MG/24 HR PATCH TRANSDERM (16:40)
[2017-04-30] MEDS: HYDROmorphONE 2 MG/ML SYG IV ×2 (16:41→20:48)
[2017-04-30] MEDS: CEFEPIME 1GM/50 ML (PMX) 50 ML IVPB ×2 (16:42→21:05)
[2017-04-30] MEDS: OCTREOTIDE 100 MCG INJ SC ×2 (16:42→22:38)
[2017-04-30] MEDS: INSULIN DETEMIR [LEVEMIR] 3ML CART SC (20:55)
[2017-04-30] MEDS: FAMOTIDINE 20 MG INJ IV (21:05)
[2017-04-30] MEDS: ASCORBIC ACID 500 MG TAB PO (21:05)
[2017-04-30] MEDS: METOPROLOL 50 MG TAB PO (21:06)
[2017-04-30] MEDS: ZOLPIDEM 5 MG TAB PO (21:08)
[2017-05-01] MEDS: HYDROmorphONE 2 MG/ML SYG IV ×7 (00:53→22:14)
[2017-05-01] MEDS: SOD CHLORIDE 0.9% 1,000 ML IV ×3 (01:27→14:26)
[2017-05-01] MEDS: FLUCONAZOLE 100 MG/NS (PMX) 50 ML IVPB (03:41)
[2017-05-01] MEDS ORDERED: DEXTROSE 50% 50 ML SYRINGE (05:33)
[2017-05-01] MEDS: DEXTROSE 50% 50 ML SYRINGE IV (05:38)
[2017-05-01] MEDS ORDERED: GLUCOSE GEL 15 GRAM TUBE PO ×2 (06:15)
[2017-05-01] MEDS ORDERED: GLUCAGON 1 MG INJ IM (06:15)
[2017-05-01] MEDS ORDERED: DEXTROSE 50% 50 ML SYRINGE IV (06:15)
[2017-05-01] MEDS: GLUCOSE GEL 15 GRAM TUBE BUCCAL (06:29)
[2017-05-01] MEDS: OCTREOTIDE 100 MCG INJ SC ×3 (06:29→21:35)
[2017-05-01] MEDS: ACCU-CHEK XX ×4 (07:47→21:35)
[2017-05-01] MEDS: ENOXAPARIN 30 MG/0.3 ML SYG SC (08:57)
[2017-05-01] MEDS: FAMOTIDINE 20 MG INJ IV ×2 (08:57→21:35)
[2017-05-01] MEDS: MULTIVITAMINS/MINERALS TAB PO (08:58)
[2017-05-01] MEDS: ZINC SULFATE 220 MG CAP PO (08:58)
[2017-05-01] MEDS: CHOLECALCIFEROL 2,000 UNIT CAP PO (08:58)
[2017-05-01] MEDS: ANASTROZOLE 1 MG TAB PO (08:58)
[2017-05-01] MEDS: ASCORBIC ACID 500 MG TAB PO ×2 (08:59→21:35)
[2017-05-01] MEDS: METOPROLOL 50 MG TAB PO ×2 (09:00→21:35)
[2017-05-01] MEDS: LEVOTHYROXINE 75 MCG TAB PO (09:00)
[2017-05-01 09:04] LABS: ADD MAN DIFF? NO
[2017-05-01 09:27] LABS: ABNORMAL IP MESSAGE 1; HEMATOCRIT 32.4 % (37.0-47.0); HEMOGLOBIN 9.9 g/dl (12.0-16.0); MEAN CORPUSCULAR HEMOGLOBIN 27.6 pg (29.0-33.0); MEAN CORPUSCULAR HGB CONC 30.6 g/dl (32.0-37.0); MEAN CORPUSCULAR VOLUME 90.3 fl (82.0-101.0); MEAN PLATELET VOLUME 12.4 fl (7.4-10.4); PLATELET COUNT 67 10^3/UL (140-415); RED BLOOD COUNT 3.59 10^6/ul (4.20-5.40); RED CELL DISTRIBUTION WIDTH 15.9 % (11.5-14.5)
[2017-05-01 09:27] LABS: WHITE BLOOD COUNT 2.2 10^3/ul (4.8-10.8)
[2017-05-01] MEDS: CEFEPIME 1GM/50 ML (PMX) 50 ML IVPB ×2 (09:34→21:34)
[2017-05-01 09:38] LABS: POSITIVE DIFF @See below
[2017-05-01 09:54] LABS: ALANINE AMINOTRANSFERASE 58 IU/L (13-69); ALBUMIN 2.8 g/dl (3.3-4.9); ALBUMIN/GLOBULIN RATIO 0.73; ALKALINE PHOSPHATASE 130 IU/L (42-121); ANION GAP 17 (8-16); ASPARTATE AMINO TRANSFERASE 56 IU/L (15-46); BILIRUBIN,INDIRECT 0.4 mg/dl (0-1.1); BILIRUBIN,TOTAL 0.4 mg/dl (0.2-1.3); BLOOD UREA NITROGEN 20 mg/dl (7-20); CALCIUM 7.6 mg/dl (8.4-10.2); CARBON DIOXIDE 17 mmol/L (21-31); CHLORIDE 110 mmol/L (97-110); CREATININE 0.86 mg/dl (0.44-1.00); GLUCOSE 121 mg/dl (70-220); POTASSIUM 4.9 mmol/L (3.5-5.1); SODIUM 139 mmol/L (135-144); TOTAL PROTEIN 6.6 g/dl (6.1-8.1)
[2017-05-01 10:39] LABS: ANISOCYTOSIS 2+ (0-0); BAND NEUTROPHILS #M 0.5 10^3/ul (0.0-0.6); BAND NEUTROPHILS % (M) 24 % (0-4); BASOPHILS % (M) 2 % (0-2); LYMPHOCYTES #M 0.5 10^3/ul (0.8-2.9); LYMPHOCYTES % (M) 26 % (15-51); MICROCYTOSIS 2+ (0-0); PLATELET ESTIMATE DECREASED; RBC MORPHOLOGY COMMENT @See below; REACTIVE LYMPHOCYTES% (M) 3 % (0-0); SEGMENTED NEUTROPHILS (M) % 45 % (39-77); SMUDGE%M 9 % (0-0); WBC MORPHOLOGY COMMENT @See below
[2017-05-01] MEDS ORDERED: HYDROmorphONE 2 MG/ML SYG IV (15:00)
[2017-05-01] MEDS: ONDANSETRON 4 MG INJ IV (18:53)
[2017-05-01] MEDS: ZOLPIDEM 5 MG TAB PO (22:13)
[2017-05-02] MEDS: SOD CHLORIDE 0.9% 1,000 ML IV ×2 (01:05→12:52)
[2017-05-02] MEDS: HYDROmorphONE 2 MG/ML SYG IV ×7 (01:45→22:23)
[2017-05-02] MEDS: ACCU-CHEK XX ×5 (02:00→21:00)
[2017-05-02] MEDS: FLUCONAZOLE 100 MG/NS (PMX) 50 ML IVPB (05:46)
[2017-05-02] MEDS: OCTREOTIDE 100 MCG INJ SC ×3 (05:47→22:32)
[2017-05-02] MEDS: ONDANSETRON 4 MG INJ IV ×3 (05:53→18:38)
[2017-05-02 08:09] LABS: WHITE BLOOD COUNT 2.2 10^3/ul (4.8-10.8)
[2017-05-02 08:09] LABS: ABNORMAL IP MESSAGE 1; HEMATOCRIT 27.9 % (37.0-47.0); HEMOGLOBIN 8.7 g/dl (12.0-16.0); MEAN CORPUSCULAR HEMOGLOBIN 26.7 pg (29.0-33.0); MEAN CORPUSCULAR HGB CONC 31.2 g/dl (32.0-37.0); MEAN CORPUSCULAR VOLUME 85.6 fl (82.0-101.0); MEAN PLATELET VOLUME 11.9 fl (7.4-10.4); PLATELET COUNT 70 10^3/UL (140-415); RED BLOOD COUNT 3.26 10^6/ul (4.20-5.40); RED CELL DISTRIBUTION WIDTH 15.4 % (11.5-14.5)
[2017-05-02] MEDS: ZINC SULFATE 220 MG CAP PO (08:22)
[2017-05-02] MEDS: METOPROLOL 50 MG TAB PO ×2 (08:22→22:28)
[2017-05-02] MEDS: CHOLECALCIFEROL 2,000 UNIT CAP PO (08:22)
[2017-05-02] MEDS: FAMOTIDINE 20 MG INJ IV ×2 (08:22→22:24)
[2017-05-02] MEDS: MULTIVITAMINS/MINERALS TAB PO (08:22)
[2017-05-02] MEDS: ASCORBIC ACID 500 MG TAB PO ×2 (08:22→21:00)
[2017-05-02] MEDS: ANASTROZOLE 1 MG TAB PO (08:24)
[2017-05-02] MEDS: ENOXAPARIN 30 MG/0.3 ML SYG SC (08:24)
[2017-05-02] MEDS: CEFEPIME 1GM/50 ML (PMX) 50 ML IVPB ×3 (08:32→22:25)
[2017-05-02 08:37] LABS: ANION GAP 13 (8-16); BLOOD UREA NITROGEN 12 mg/dl (7-20); CALCIUM 7.6 mg/dl (8.4-10.2); CARBON DIOXIDE 19 mmol/L (21-31); CHLORIDE 110 mmol/L (97-110); CREATININE 0.82 mg/dl (0.44-1.00); GLUCOSE 146 mg/dl (70-220); POTASSIUM 3.9 mmol/L (3.5-5.1); SODIUM 138 mmol/L (135-144)
[2017-05-02 08:43] LABS: POSITIVE DIFF @See below
[2017-05-02 08:44] LABS: ADD MAN DIFF? YES
[2017-05-02 09:45] LABS: ANISOCYTOSIS 1+ (0-0); BAND NEUTROPHILS #M 0.2 10^3/ul (0.0-0.6); BAND NEUTROPHILS % (M) 11 % (0-4); EOSINOPHILS % (M) 2 % (0-7); GIANT THROMBO% (M) 4 % (0-0); LYMPHOCYTES #M 1.1 10^3/ul (0.8-2.9); LYMPHOCYTES % (M) 54 % (15-51); MICROCYTOSIS 1+ (0-0); MONOCYTE #M 0.1 10^3/ul (0.3-0.9); MONOCYTES % (M) 7 % (0-11); PLATELET ESTIMATE DECREASED; REACTIVE LYMPHOCYTES% (M) 1 % (0-0); SEG NEUT #M 0.6 10^3/ul (1.7-7.5); SEGMENTED NEUTROPHILS (M) % 25 % (39-77); SMUDGE%M 14 % (0-0)
[2017-05-02] MEDS: METOCLOPRAMIDE 10 MG INJ IV (10:34)
[2017-05-02] MEDS: LEVOTHYROXINE 75 MCG TAB PO (11:25)
[2017-05-02] MEDS: CASPOFUNGIN 70 MG in NS 250 ML IVPB (13:44)
[2017-05-02] MEDS: VANCOMYCIN HCL 250 MG/5ML POSYG PO (18:37)
[2017-05-03] MEDS: VANCOMYCIN HCL 250 MG/5ML POSYG PO ×4 (00:10→17:55)
[2017-05-03] MEDS: SOD CHLORIDE 0.9% 1,000 ML IV ×3 (00:37→15:36)
[2017-05-03] MEDS: ZOLPIDEM 5 MG TAB PO ×2 (00:45→23:25)
[2017-05-03] MEDS: CEFEPIME 1GM/50 ML (PMX) 50 ML IVPB ×4 (01:00→21:31)
[2017-05-03] MEDS: ACCU-CHEK XX ×5 (02:12→21:42)
[2017-05-03] MEDS: HYDROmorphONE 2 MG/ML SYG IV ×6 (03:49→22:54)
[2017-05-03 05:10] LABS: WHITE BLOOD COUNT 2.3 10^3/ul (4.8-10.8)
[2017-05-03 05:10] LABS: ABNORMAL IP MESSAGE 1; HEMATOCRIT 25.9 % (37.0-47.0); HEMOGLOBIN 8.6 g/dl (12.0-16.0); MEAN CORPUSCULAR HEMOGLOBIN 27.8 pg (29.0-33.0); MEAN CORPUSCULAR HGB CONC 33.2 g/dl (32.0-37.0); MEAN CORPUSCULAR VOLUME 83.8 fl (82.0-101.0); MEAN PLATELET VOLUME 11.9 fl (7.4-10.4); PLATELET COUNT 76 10^3/UL (140-415); RED BLOOD COUNT 3.09 10^6/ul (4.20-5.40); RED CELL DISTRIBUTION WIDTH 15.6 % (11.5-14.5)
[2017-05-03 05:36] LABS: ADD MAN DIFF? YES; POSITIVE DIFF @See below
[2017-05-03 05:40] LABS: ALANINE AMINOTRANSFERASE 44 IU/L (13-69); ALBUMIN 2.7 g/dl (3.3-4.9); ALBUMIN/GLOBULIN RATIO 0.67; ALKALINE PHOSPHATASE 137 IU/L (42-121); ANION GAP 10 (8-16); ASPARTATE AMINO TRANSFERASE 33 IU/L (15-46); BILIRUBIN,INDIRECT 0.3 mg/dl (0-1.1); BILIRUBIN,TOTAL 0.3 mg/dl (0.2-1.3); BLOOD UREA NITROGEN 8 mg/dl (7-20); CALCIUM 7.9 mg/dl (8.4-10.2); CARBON DIOXIDE 21 mmol/L (21-31); CHLORIDE 111 mmol/L (97-110); CHOL/HDL RATIO 8.8 RATIO; CHOLESTEROL 106 mg/dl (100-200); CREATININE 0.81 mg/dl (0.44-1.00); GLUCOSE 136 mg/dl (70-220); HDL CHOLESTEROL 12 mg/dl (37-92); LDL CHOLESTEROL,CALCULATED 48 mg/dl; POTASSIUM 3.8 mmol/L (3.5-5.1); SODIUM 138 mmol/L (135-144); TOTAL PROTEIN 6.7 g/dl (6.1-8.1); TRIGLYCERIDES 232 mg/dl (0-149)
[2017-05-03] MEDS: OCTREOTIDE 100 MCG INJ SC ×3 (06:18→23:25)
[2017-05-03] MEDS: LEVOTHYROXINE 75 MCG TAB PO (06:18)
[2017-05-03 06:58] LABS: HEMOGLOBIN A1C 6.1 % (0-5.9)
[2017-05-03] MEDS: ENOXAPARIN 60 MG/0.6 ML SYG SC (09:07)
[2017-05-03 09:08] LABS: ANISOCYTOSIS 2+ (0-0); BAND NEUTROPHILS #M 0.2 10^3/ul (0.0-0.6); BAND NEUTROPHILS % (M) 10 % (0-4); BASOPHILS % (M) 1 % (0-2); EOSINOPHILS % (M) 4 % (0-7); LYMPHOCYTES #M 1.2 10^3/ul (0.8-2.9); LYMPHOCYTES % (M) 54 % (15-51); MONOCYTE #M 0.1 10^3/ul (0.3-0.9); MONOCYTES % (M) 6 % (0-11); PLATELET ESTIMATE DECREASED; REACTIVE LYMPHOCYTES% (M) 1 % (0-0); SEG NEUT #M 0.5 10^3/ul (1.7-7.5); SEGMENTED NEUTROPHILS (M) % 22 % (39-77); SMUDGE%M 6 % (0-0)
[2017-05-03] MEDS: CHOLECALCIFEROL 2,000 UNIT CAP PO (09:09)
[2017-05-03] MEDS: FAMOTIDINE 20 MG INJ IV ×2 (09:09→21:15)
[2017-05-03] MEDS: ASCORBIC ACID 500 MG TAB PO ×2 (09:09→21:29)
[2017-05-03] MEDS: MULTIVITAMINS/MINERALS TAB PO (09:09)
[2017-05-03] MEDS: ONDANSETRON 4 MG INJ IV ×3 (09:09→15:34)
[2017-05-03] MEDS: ANASTROZOLE 1 MG TAB PO (09:10)
[2017-05-03] MEDS: METOPROLOL 50 MG TAB PO ×2 (09:13→21:34)
[2017-05-03] MEDS: ZINC SULFATE 220 MG CAP PO (09:40)
[2017-05-03] MEDS: CASPOFUNGIN 50 MG in SOD CHLORIDE 0.9% 250 ML IVPB (15:35)
[2017-05-03] MEDS: FENTAnyl PATCH 12 MCG/HR TRANSDERM (17:32)
[2017-05-03] MEDS ORDERED: ACETAMINOPHEN 650MG/20.3ML CUP (22:59)
[2017-05-04] MEDS: VANCOMYCIN HCL 250 MG/5ML POSYG PO ×5 (00:07→23:31)
[2017-05-04] MEDS: ACCU-CHEK XX ×6 (02:05→21:00)
[2017-05-04] MEDS: HYDROmorphONE 2 MG/ML SYG IV ×6 (03:50→23:32)
[2017-05-04] MEDS: LEVOTHYROXINE 75 MCG TAB PO (06:04)
[2017-05-04] MEDS: OCTREOTIDE 100 MCG INJ SC ×3 (06:05→22:09)
[2017-05-04 06:11] LABS: ABNORMAL IP MESSAGE 1; HEMATOCRIT 27.1 % (37.0-47.0); HEMOGLOBIN 8.8 g/dl (12.0-16.0); MEAN CORPUSCULAR HEMOGLOBIN 27.3 pg (29.0-33.0); MEAN CORPUSCULAR HGB CONC 32.5 g/dl (32.0-37.0); MEAN CORPUSCULAR VOLUME 84.2 fl (82.0-101.0); MEAN PLATELET VOLUME 12.1 fl (7.4-10.4); PLATELET COUNT 87 10^3/UL (140-415); RED BLOOD COUNT 3.22 10^6/ul (4.20-5.40); RED CELL DISTRIBUTION WIDTH 15.4 % (11.5-14.5)
[2017-05-04 06:11] LABS: WHITE BLOOD COUNT 2.2 10^3/ul (4.8-10.8)
[2017-05-04 06:19] LABS: ADD MAN DIFF? YES; POSITIVE DIFF @See below
[2017-05-04 06:51] LABS: ANION GAP 10 (8-16); BLOOD UREA NITROGEN 4 mg/dl (7-20); CALCIUM 7.8 mg/dl (8.4-10.2); CARBON DIOXIDE 21 mmol/L (21-31); CHLORIDE 113 mmol/L (97-110); GLUCOSE 126 mg/dl (70-220); POTASSIUM 3.4 mmol/L (3.5-5.1); SODIUM 141 mmol/L (135-144)
[2017-05-04] MEDS: SOD CHLORIDE 0.9% 1,000 ML IV ×2 (08:05→12:08)
[2017-05-04] MEDS: CEFEPIME 1GM/50 ML (PMX) 50 ML IVPB ×2 (08:45→22:28)
[2017-05-04] MEDS: MULTIVITAMINS/MINERALS TAB PO (08:47)
[2017-05-04] MEDS: CHOLECALCIFEROL 2,000 UNIT CAP PO (08:47)
[2017-05-04] MEDS: ZINC SULFATE 220 MG CAP PO (08:47)
[2017-05-04] MEDS: METOPROLOL 50 MG TAB PO ×2 (08:48→20:12)
[2017-05-04] MEDS: ANASTROZOLE 1 MG TAB PO (08:49)
[2017-05-04] MEDS: FAMOTIDINE 20 MG INJ IV (08:51)
[2017-05-04] MEDS: ASCORBIC ACID 500 MG TAB PO ×2 (12:04→20:09)
[2017-05-04] MEDS: ENOXAPARIN 60 MG/0.6 ML SYG SC (12:09)
[2017-05-04] MEDS: ONDANSETRON 4 MG INJ IV (13:21)
[2017-05-04] MEDS: CASPOFUNGIN 50 MG in SOD CHLORIDE 0.9% 250 ML IVPB (13:22)
[2017-05-04] MEDS: POTASSIUM CHLORIDE 20 MEQ in DEXTROSE 5% 100 ML IVPB (20:09)
[2017-05-05] MEDS: ACCU-CHEK XX ×5 (01:27→21:48)
[2017-05-05] MEDS: SOD CHLORIDE 0.9% 1,000 ML IV ×3 (02:28→18:32)
[2017-05-05] MEDS: HYDROmorphONE 2 MG/ML SYG IV ×7 (02:38→21:30)
[2017-05-05] MEDS: OCTREOTIDE 100 MCG INJ SC ×3 (05:26→21:47)
[2017-05-05] MEDS: PANTOPRAZOLE (EC) 40 MG TAB PO (05:26)
[2017-05-05] MEDS: LEVOTHYROXINE 75 MCG TAB PO (05:26)
[2017-05-05] MEDS: VANCOMYCIN HCL 250 MG/5ML POSYG PO ×4 (05:26→23:08)
[2017-05-05 06:52] LABS: WHITE BLOOD COUNT 2.9 10^3/ul (4.8-10.8)
[2017-05-05 06:52] LABS: ABNORMAL IP MESSAGE 1; HEMATOCRIT 28.4 % (37.0-47.0); MEAN CORPUSCULAR HGB CONC 31.7 g/dl (32.0-37.0); MEAN CORPUSCULAR VOLUME 85.3 fl (82.0-101.0); MEAN PLATELET VOLUME 11.7 fl (7.4-10.4); RED BLOOD COUNT 3.33 10^6/ul (4.20-5.40); RED CELL DISTRIBUTION WIDTH 15.4 % (11.5-14.5)
[2017-05-05 07:10] LABS: PLATELET COUNT 107 10^3/UL (140-415)
[2017-05-05 07:11] LABS: ADD MAN DIFF? YES; POSITIVE DIFF @See below
[2017-05-05 07:13] LABS: ANION GAP 13 (8-16); BLOOD UREA NITROGEN 3 mg/dl (7-20); CALCIUM 7.8 mg/dl (8.4-10.2); CARBON DIOXIDE 23 mmol/L (21-31); CHLORIDE 111 mmol/L (97-110); CREATININE 0.74 mg/dl (0.44-1.00); GLUCOSE 121 mg/dl (70-220); POTASSIUM 3.7 mmol/L (3.5-5.1); SODIUM 143 mmol/L (135-144)
[2017-05-05] MEDS: MULTIVITAMINS/MINERALS TAB PO (09:03)
[2017-05-05] MEDS: ENOXAPARIN 60 MG/0.6 ML SYG SC (09:03)
[2017-05-05] MEDS: CHOLECALCIFEROL 2,000 UNIT CAP PO (09:03)
[2017-05-05] MEDS: METOPROLOL 50 MG TAB PO ×2 (09:04→21:40)
[2017-05-05] MEDS: ASCORBIC ACID 500 MG TAB PO ×2 (09:04→21:32)
[2017-05-05] MEDS: ZINC SULFATE 220 MG CAP PO (09:04)
[2017-05-05] MEDS: ANASTROZOLE 1 MG TAB PO (09:04)
[2017-05-05] MEDS: CEFEPIME 1GM/50 ML (PMX) 50 ML IVPB ×2 (09:05→21:32)
[2017-05-05 09:06] LABS: ANISOCYTOSIS 2+ (0-0); BAND NEUTROPHILS #M 0.1 10^3/ul (0.0-0.6); BAND NEUTROPHILS % (M) 5 % (0-4); EOSINOPHILS % (M) 3 % (0-7); LYMPHOCYTES #M 1.9 10^3/ul (0.8-2.9); LYMPHOCYTES % (M) 66 % (15-51); METAMYELOCYTES %M 2 % (0-0); MICROCYTOSIS 2+ (0-0); MONOCYTES % (M) 3 % (0-11); PLATELET ESTIMATE DECREASED; POLYCHROMASIA 1+ (0-0); SEG NEUT #M 0.6 10^3/ul (1.7-7.5); SEGMENTED NEUTROPHILS (M) % 21 % (39-77); SMUDGE%M 4 % (0-0)
[2017-05-05] MEDS: CASPOFUNGIN 50 MG in SOD CHLORIDE 0.9% 250 ML IVPB (14:53)
[2017-05-05] MEDS: hydrALAzine 20 MG INJ IV (14:54)
[2017-05-05] MEDS: ONDANSETRON 4 MG INJ IV (21:47)
[2017-05-06] MEDS: HYDROmorphONE 2 MG/ML SYG IV ×8 (00:36→22:29)
[2017-05-06] MEDS: ZOLPIDEM 5 MG TAB PO (01:47)
[2017-05-06] MEDS: ACCU-CHEK XX ×5 (02:00→21:15)
[2017-05-06] MEDS: ONDANSETRON 4 MG INJ IV (03:40)
[2017-05-06] MEDS: OCTREOTIDE 100 MCG INJ SC ×4 (06:22→22:29)
[2017-05-06] MEDS: LEVOTHYROXINE 75 MCG TAB PO (06:22)
[2017-05-06] MEDS: VANCOMYCIN HCL 250 MG/5ML POSYG PO ×3 (06:22→17:52)
[2017-05-06] MEDS: PANTOPRAZOLE (EC) 40 MG TAB PO (06:22)
[2017-05-06] MEDS: LISINOPRIL 10 MG TAB PO (08:47)
[2017-05-06] MEDS: ZINC SULFATE 220 MG CAP PO (08:48)
[2017-05-06] MEDS: ANASTROZOLE 1 MG TAB PO (08:48)
[2017-05-06] MEDS: METOPROLOL 50 MG TAB PO ×2 (08:48→21:14)
[2017-05-06] MEDS: CEFEPIME 1GM/50 ML (PMX) 50 ML IVPB ×2 (08:48→21:13)
[2017-05-06] MEDS: ASCORBIC ACID 500 MG TAB PO ×2 (08:48→21:14)
[2017-05-06] MEDS: CHOLECALCIFEROL 2,000 UNIT CAP PO (08:48)
[2017-05-06] MEDS: MULTIVITAMINS/MINERALS TAB PO (08:48)
[2017-05-06] MEDS: SOD CHLORIDE 0.9% 1,000 ML IV (08:49)
[2017-05-06] MEDS: ENOXAPARIN 60 MG/0.6 ML SYG SC (08:49)
[2017-05-06] MEDS: FENTAnyl PATCH 12 MCG/HR TRANSDERM ×2 (14:00→16:49)
[2017-05-06] MEDS: CASPOFUNGIN 50 MG in SOD CHLORIDE 0.9% 250 ML IVPB (15:16)
[2017-05-07] MEDS: HYDROmorphONE 2 MG/ML SYG IV ×7 (01:41→21:29)
[2017-05-07] MEDS: VANCOMYCIN HCL 250 MG/5ML POSYG PO ×5 (01:41→23:31)
[2017-05-07] MEDS: ACCU-CHEK XX ×5 (01:52→21:53)
[2017-05-07] MEDS: LEVOTHYROXINE 75 MCG TAB PO (05:08)
[2017-05-07] MEDS: ONDANSETRON 4 MG INJ IV (05:08)
[2017-05-07] MEDS: PANTOPRAZOLE (EC) 40 MG TAB PO (05:08)
[2017-05-07] MEDS: SOD CHLORIDE 0.9% 1,000 ML IV (05:09)
[2017-05-07] MEDS: OCTREOTIDE 100 MCG INJ SC ×3 (05:14→22:06)
[2017-05-07 06:17] LABS: ADD MAN DIFF? NO
[2017-05-07 06:19] LABS: BASOPHILS % 0.5 % (0.0-2.0); EOSINOPHILS # 0.1 10^3/ul (0.0-0.5); EOSINOPHILS % 3.6 % (0.0-7.0); HEMATOCRIT 28.1 % (37.0-47.0); HEMOGLOBIN 9.1 g/dl (12.0-16.0); LYMPHOCYTES # 1.9 10^3/ul (0.8-2.9); LYMPHOCYTES % 47.7 % (15.0-51.0); MEAN CORPUSCULAR HEMOGLOBIN 26.9 pg (29.0-33.0); MEAN CORPUSCULAR HGB CONC 32.4 g/dl (32.0-37.0); MEAN CORPUSCULAR VOLUME 83.1 fl (82.0-101.0); MEAN PLATELET VOLUME 10.9 fl (7.4-10.4); MONOCYTE # 0.3 10^3/ul (0.3-0.9); MONOCYTES % 8.2 % (0.0-11.0); NEUTROPHIL # 1.4 10^3/ul (1.6-7.5); NEUTROPHILS % 36.7 % (39.0-77.0); PLATELET COUNT 160 10^3/UL (140-415); RED BLOOD COUNT 3.38 10^6/ul (4.20-5.40); RED CELL DISTRIBUTION WIDTH 15.6 % (11.5-14.5)
[2017-05-07 06:19] LABS: WHITE BLOOD COUNT 3.9 10^3/ul (4.8-10.8)
[2017-05-07 06:57] LABS: ANION GAP 11 (8-16); BLOOD UREA NITROGEN 4 mg/dl (7-20); CALCIUM 7.7 mg/dl (8.4-10.2); CARBON DIOXIDE 24 mmol/L (21-31); CHLORIDE 109 mmol/L (97-110); CREATININE 0.72 mg/dl (0.44-1.00); GLUCOSE 137 mg/dl (70-220); POTASSIUM 3.1 mmol/L (3.5-5.1); SODIUM 141 mmol/L (135-144)
[2017-05-07] MEDS: MULTIVITAMINS/MINERALS TAB PO (08:34)
[2017-05-07] MEDS: METOPROLOL 50 MG TAB PO ×2 (08:34→21:30)
[2017-05-07] MEDS: ZINC SULFATE 220 MG CAP PO (08:35)
[2017-05-07] MEDS: ASCORBIC ACID 500 MG TAB PO ×2 (08:35→21:30)
[2017-05-07] MEDS: LISINOPRIL 10 MG TAB PO (08:35)
[2017-05-07] MEDS: CHOLECALCIFEROL 2,000 UNIT CAP PO (08:35)
[2017-05-07] MEDS: ENOXAPARIN 60 MG/0.6 ML SYG SC (08:37)
[2017-05-07] MEDS: CEFEPIME 1GM/50 ML (PMX) 50 ML IVPB ×2 (08:39→21:29)
[2017-05-07] MEDS: ANASTROZOLE 1 MG TAB PO (10:06)
[2017-05-07] MEDS: CASPOFUNGIN 50 MG in SOD CHLORIDE 0.9% 250 ML IVPB (13:32)
[2017-05-07] MEDS: POTASSIUM CHLORIDE (SR) 20 MEQ TAB PO (13:32)
[2017-05-07] MEDS: PSYLLIUM 28% PACKET PO ×2 (15:03→21:30)
[2017-05-07] MEDS: CLONIDINE 0.1 MG/24 HR PATCH TRANSDERM (15:05)
[2017-05-08] MEDS: HYDROmorphONE 2 MG/ML SYG IV ×8 (00:31→22:53)
[2017-05-08] MEDS: ZOLPIDEM 5 MG TAB PO ×2 (01:16→22:23)
[2017-05-08] MEDS: ACCU-CHEK XX ×5 (02:00→21:14)
[2017-05-08] MEDS: OCTREOTIDE 100 MCG INJ SC ×3 (05:21→22:14)
[2017-05-08] MEDS: LEVOTHYROXINE 75 MCG TAB PO (05:21)
[2017-05-08] MEDS: VANCOMYCIN HCL 250 MG/5ML POSYG PO ×4 (05:21→23:54)
[2017-05-08] MEDS: PANTOPRAZOLE (EC) 40 MG TAB PO (05:21)
[2017-05-08 06:30] LABS: ANION GAP 10 (8-16); BLOOD UREA NITROGEN 4 mg/dl (7-20); CALCIUM 8.8 mg/dl (8.4-10.2); CARBON DIOXIDE 26 mmol/L (21-31); CHLORIDE 110 mmol/L (97-110); CREATININE 0.76 mg/dl (0.44-1.00); GLUCOSE 137 mg/dl (70-220); POTASSIUM 3.1 mmol/L (3.5-5.1); SODIUM 143 mmol/L (135-144)
[2017-05-08] MEDS: SOD CHLORIDE 0.9% 1,000 ML IV (07:15)
[2017-05-08] MEDS: ANASTROZOLE 1 MG TAB PO (08:51)
[2017-05-08] MEDS: ZINC SULFATE 220 MG CAP PO (09:00)
[2017-05-08] MEDS: MULTIVITAMINS/MINERALS TAB PO (09:00)
[2017-05-08] MEDS: LISINOPRIL 10 MG TAB PO (09:00)
[2017-05-08] MEDS: CHOLECALCIFEROL 2,000 UNIT CAP PO (09:00)
[2017-05-08] MEDS: METOPROLOL 50 MG TAB PO ×2 (09:01→21:12)
[2017-05-08] MEDS: CEFEPIME 1GM/50 ML (PMX) 50 ML IVPB ×2 (09:01→21:12)
[2017-05-08] MEDS: PSYLLIUM 28% PACKET PO ×2 (09:01→21:12)
[2017-05-08] MEDS: ASCORBIC ACID 500 MG TAB PO ×2 (09:01→21:12)
[2017-05-08] MEDS: ENOXAPARIN 60 MG/0.6 ML SYG SC (09:02)
[2017-05-08] MEDS ORDERED: POTASSIUM CHLORIDE 30 MEQ in SOD CHLORIDE 0.9% 150 ML IVPB (11:00)
[2017-05-08] MEDS: POTASSIUM CHLORIDE 50 ML IVPB ×4 (12:36→17:42)
[2017-05-08] MEDS: CASPOFUNGIN 50 MG in SOD CHLORIDE 0.9% 250 ML IVPB (15:22)
[2017-05-08 19:39] LABS: TROPONIN-I < 0.012 ng/ml (0.00-0.12)
[2017-05-08] MEDS: CYCLOBENZAPRINE 10 MG TAB PO (22:14)
[2017-05-09] MEDS: ACCU-CHEK XX ×5 (02:00→21:00)
[2017-05-09] MEDS: HYDROmorphONE 2 MG/ML SYG IV ×7 (02:58→22:01)
[2017-05-09] MEDS: OCTREOTIDE 100 MCG INJ SC ×3 (05:29→21:59)
[2017-05-09] MEDS: PANTOPRAZOLE (EC) 40 MG TAB PO (05:29)
[2017-05-09] MEDS: VANCOMYCIN HCL 250 MG/5ML POSYG PO ×4 (05:29→23:46)
[2017-05-09] MEDS: LEVOTHYROXINE 75 MCG TAB PO (05:30)
[2017-05-09] MEDS: SOD CHLORIDE 0.9% 1,000 ML IV (05:30)
[2017-05-09 06:32] LABS: ADD MAN DIFF? NO
[2017-05-09 06:34] LABS: BASOPHILS % 0.3 % (0.0-2.0); EOSINOPHILS # 0.2 10^3/ul (0.0-0.5); HEMATOCRIT 28.6 % (37.0-47.0); HEMOGLOBIN 9.3 g/dl (12.0-16.0); LYMPHOCYTES # 1.9 10^3/ul (0.8-2.9); LYMPHOCYTES % 49.6 % (15.0-51.0); MEAN CORPUSCULAR HEMOGLOBIN 27.4 pg (29.0-33.0); MEAN CORPUSCULAR HGB CONC 32.5 g/dl (32.0-37.0); MEAN CORPUSCULAR VOLUME 84.4 fl (82.0-101.0); MEAN PLATELET VOLUME 10.8 fl (7.4-10.4); MONOCYTE # 0.3 10^3/ul (0.3-0.9); MONOCYTES % 8.5 % (0.0-11.0); NEUTROPHIL # 1.4 10^3/ul (1.6-7.5); NEUTROPHILS % 36.3 % (39.0-77.0); PLATELET COUNT 170 10^3/UL (140-415); RED BLOOD COUNT 3.39 10^6/ul (4.20-5.40); RED CELL DISTRIBUTION WIDTH 16.3 % (11.5-14.5)
[2017-05-09 06:34] LABS: WHITE BLOOD COUNT 3.8 10^3/ul (4.8-10.8)
[2017-05-09 07:13] LABS: CHOL/HDL RATIO 4.1 RATIO; HDL CHOLESTEROL 27 mg/dl (37-92); LDL CHOLESTEROL,CALCULATED 56 mg/dl; TRIGLYCERIDES 139 mg/dl (0-149)
[2017-05-09 07:13] LABS: CHOLESTEROL 111 mg/dl (100-200)
[2017-05-09 07:16] LABS: ANION GAP 14 (8-16); BLOOD UREA NITROGEN 3 mg/dl (7-20); CALCIUM 8.5 mg/dl (8.4-10.2); CARBON DIOXIDE 26 mmol/L (21-31); CHLORIDE 108 mmol/L (97-110); CREATININE 0.78 mg/dl (0.44-1.00); GLUCOSE 128 mg/dl (70-220); POTASSIUM 3.6 mmol/L (3.5-5.1); SODIUM 144 mmol/L (135-144)
[2017-05-09] MEDS: ASCORBIC ACID 500 MG TAB PO ×2 (09:47→21:59)
[2017-05-09] MEDS: ZINC SULFATE 220 MG CAP PO (09:47)
[2017-05-09] MEDS: CYCLOBENZAPRINE 10 MG TAB PO ×2 (09:47→21:59)
[2017-05-09] MEDS: CEFEPIME 1GM/50 ML (PMX) 50 ML IVPB ×2 (09:47→21:58)
[2017-05-09] MEDS: LISINOPRIL 10 MG TAB PO (09:48)
[2017-05-09] MEDS: MULTIVITAMINS/MINERALS TAB PO (09:48)
[2017-05-09] MEDS: CHOLECALCIFEROL 2,000 UNIT CAP PO (09:49)
[2017-05-09] MEDS: PSYLLIUM 28% PACKET PO ×2 (09:49→21:58)
[2017-05-09] MEDS: METOPROLOL 50 MG TAB PO ×2 (09:49→22:00)
[2017-05-09] MEDS: ENOXAPARIN 60 MG/0.6 ML SYG SC (09:52)
[2017-05-09] MEDS: ANASTROZOLE 1 MG TAB PO (10:04)
[2017-05-09] MEDS ORDERED: POTASSIUM CHLORIDE (1.33 MEQ/ML PO SYG) PO (11:30)
[2017-05-09] MEDS: POTASSIUM CHLORIDE 20 MEQ POWDER FOR ORAL SOLN PO (12:00)
[2017-05-09] MEDS: APIXABAN 5 MG TABLET PO ×2 (12:34→21:59)
[2017-05-09 13:07] LABS: D-DIMER 351.05 ng/ml (<460)
[2017-05-09 13:13] LABS: TROPONIN-I < 0.012 ng/ml (0.00-0.12)
[2017-05-09] MEDS: POTASSIUM CHLORIDE (SR) 20 MEQ TAB PO (13:39)
[2017-05-09] MEDS: CASPOFUNGIN 50 MG in SOD CHLORIDE 0.9% 250 ML IVPB (13:39)
[2017-05-09] MEDS: FENTAnyl PATCH 12 MCG/HR TRANSDERM (14:55)
[2017-05-09 19:48] LABS: TROPONIN-I < 0.012 ng/ml (0.00-0.12)
[2017-05-09] MEDS: ZOLPIDEM 5 MG TAB PO (23:46)
[2017-05-10] MEDS: ACCU-CHEK XX ×5 (00:59→21:00)
[2017-05-10] MEDS: HYDROmorphONE 2 MG/ML SYG IV ×7 (01:06→22:11)
[2017-05-10 01:36] LABS: TROPONIN-I < 0.012 ng/ml (0.00-0.12)
[2017-05-10] MEDS: VANCOMYCIN HCL 250 MG/5ML POSYG PO ×3 (05:01→17:37)
[2017-05-10] MEDS: LEVOTHYROXINE 75 MCG TAB PO (05:01)
[2017-05-10] MEDS: OCTREOTIDE 100 MCG INJ SC ×3 (05:01→23:05)
[2017-05-10] MEDS: PANTOPRAZOLE (EC) 40 MG TAB PO (05:01)
[2017-05-10 07:01] LABS: ADD MAN DIFF? NO
[2017-05-10 07:08] LABS: WHITE BLOOD COUNT 3.7 10^3/ul (4.8-10.8)
[2017-05-10 07:08] LABS: BASOPHILS % 0.5 % (0.0-2.0); EOSINOPHILS # 0.1 10^3/ul (0.0-0.5); EOSINOPHILS % 3.8 % (0.0-7.0); HEMATOCRIT 31.4 % (37.0-47.0); HEMOGLOBIN 10.1 g/dl (12.0-16.0); LYMPHOCYTES # 1.7 10^3/ul (0.8-2.9); LYMPHOCYTES % 45.8 % (15.0-51.0); MEAN CORPUSCULAR HEMOGLOBIN 26.9 pg (29.0-33.0); MEAN CORPUSCULAR HGB CONC 32.2 g/dl (32.0-37.0); MEAN CORPUSCULAR VOLUME 83.7 fl (82.0-101.0); MEAN PLATELET VOLUME 10.2 fl (7.4-10.4); MONOCYTE # 0.4 10^3/ul (0.3-0.9); MONOCYTES % 11.4 % (0.0-11.0); NEUTROPHIL # 1.4 10^3/ul (1.6-7.5); NEUTROPHILS % 37.7 % (39.0-77.0); PLATELET COUNT 169 10^3/UL (140-415); RED BLOOD COUNT 3.75 10^6/ul (4.20-5.40)
[2017-05-10 07:33] LABS: TROPONIN-I < 0.012 ng/ml (0.00-0.12)
[2017-05-10 07:56] LABS: ANION GAP 12 (8-16); BLOOD UREA NITROGEN 5 mg/dl (7-20); CALCIUM 8.8 mg/dl (8.4-10.2); CARBON DIOXIDE 24 mmol/L (21-31); CHLORIDE 108 mmol/L (97-110); CREATININE 0.69 mg/dl (0.44-1.00); GLUCOSE 122 mg/dl (70-220); POTASSIUM 3.7 mmol/L (3.5-5.1); SODIUM 140 mmol/L (135-144)
[2017-05-10] MEDS: CHOLECALCIFEROL 2,000 UNIT CAP PO (08:30)
[2017-05-10] MEDS: ZINC SULFATE 220 MG CAP PO (08:30)
[2017-05-10] MEDS: CYCLOBENZAPRINE 10 MG TAB PO ×2 (08:30→23:06)
[2017-05-10] MEDS: ASCORBIC ACID 500 MG TAB PO ×2 (08:30→23:05)
[2017-05-10] MEDS: APIXABAN 5 MG TABLET PO ×2 (08:30→23:05)
[2017-05-10] MEDS: POTASSIUM CHLORIDE 20 MEQ POWDER FOR ORAL SOLN PO (08:30)
[2017-05-10] MEDS: POTASSIUM CHLORIDE (SR) 20 MEQ TAB PO (08:30)
[2017-05-10] MEDS: MULTIVITAMINS/MINERALS TAB PO (08:30)
[2017-05-10] MEDS: METOPROLOL 50 MG TAB PO ×2 (08:31→23:05)
[2017-05-10] MEDS: LISINOPRIL 10 MG TAB PO (08:31)
[2017-05-10] MEDS: CEFEPIME 1GM/50 ML (PMX) 50 ML IVPB ×2 (08:33→23:06)
[2017-05-10] MEDS: PSYLLIUM 28% PACKET PO ×2 (08:33→23:04)
[2017-05-10] MEDS: ANASTROZOLE 1 MG TAB PO (08:37)
[2017-05-10] MEDS: ENOXAPARIN 60 MG/0.6 ML SYG SC (08:38)
[2017-05-10] MEDS: SOD CHLORIDE 0.9% 1,000 ML IV (08:40)
[2017-05-10] MEDS: PAMIDRONATE 60 MG in SOD CHLORIDE 0.9% 500 ML IV (12:46)
[2017-05-10 13:44] LABS: TROPONIN-I < 0.012 ng/ml (0.00-0.12)
[2017-05-10] MEDS: CASPOFUNGIN 50 MG in SOD CHLORIDE 0.9% 250 ML IVPB (18:05)
[2017-05-10 19:10] LABS: TROPONIN-I < 0.012 ng/ml (0.00-0.12)
[2017-05-10] MEDS: ZOLPIDEM 5 MG TAB PO (23:04)
[2017-05-11] MEDS: HYDROmorphONE 2 MG/ML SYG IV ×7 (01:27→20:46)
[2017-05-11] MEDS: VANCOMYCIN HCL 250 MG/5ML POSYG PO ×4 (01:28→17:43)
[2017-05-11] MEDS: ACCU-CHEK XX ×5 (02:00→21:00)
[2017-05-11] MEDS: OCTREOTIDE 100 MCG INJ SC ×3 (04:57→22:37)
[2017-05-11] MEDS: LEVOTHYROXINE 75 MCG TAB PO (04:57)
[2017-05-11] MEDS: PANTOPRAZOLE (EC) 40 MG TAB PO (04:57)
[2017-05-11 05:47] LABS: ADD MAN DIFF? NO
[2017-05-11 05:56] LABS: BASOPHILS % 0.6 % (0.0-2.0); EOSINOPHILS # 0.1 10^3/ul (0.0-0.5); EOSINOPHILS % 3.6 % (0.0-7.0); HEMATOCRIT 30.3 % (37.0-47.0); HEMOGLOBIN 9.8 g/dl (12.0-16.0); LYMPHOCYTES # 1.8 10^3/ul (0.8-2.9); MEAN CORPUSCULAR HGB CONC 32.3 g/dl (32.0-37.0); MEAN CORPUSCULAR VOLUME 83.5 fl (82.0-101.0); MEAN PLATELET VOLUME 10.9 fl (7.4-10.4); MONOCYTE # 0.4 10^3/ul (0.3-0.9); MONOCYTES % 11.7 % (0.0-11.0); NEUTROPHILS % 30.2 % (39.0-77.0); PLATELET COUNT 161 10^3/UL (140-415); RED BLOOD COUNT 3.63 10^6/ul (4.20-5.40)
[2017-05-11 05:56] LABS: WHITE BLOOD COUNT 3.3 10^3/ul (4.8-10.8)
[2017-05-11 06:42] LABS: ANION GAP 9 (8-16); BLOOD UREA NITROGEN 5 mg/dl (7-20); CALCIUM 8.7 mg/dl (8.4-10.2); CARBON DIOXIDE 25 mmol/L (21-31); CHLORIDE 109 mmol/L (97-110); CREATININE 0.75 mg/dl (0.44-1.00); GLUCOSE 129 mg/dl (70-220); POTASSIUM 3.4 mmol/L (3.5-5.1); SODIUM 140 mmol/L (135-144)
[2017-05-11] MEDS: SOD CHLORIDE 0.9% 1,000 ML IV (07:15)
[2017-05-11] MEDS: CEFEPIME 1GM/50 ML (PMX) 50 ML IVPB ×2 (08:29→20:51)
[2017-05-11] MEDS: MULTIVITAMINS/MINERALS TAB PO (08:30)
[2017-05-11] MEDS: ZINC SULFATE 220 MG CAP PO (08:30)
[2017-05-11] MEDS: ASCORBIC ACID 500 MG TAB PO ×2 (08:30→20:51)
[2017-05-11] MEDS: POTASSIUM CHLORIDE (SR) 20 MEQ TAB PO ×2 (08:30→10:04)
[2017-05-11] MEDS: APIXABAN 5 MG TABLET PO ×2 (08:30→20:51)
[2017-05-11] MEDS: LISINOPRIL 10 MG TAB PO (08:31)
[2017-05-11] MEDS: CYCLOBENZAPRINE 10 MG TAB PO ×2 (08:31→20:51)
[2017-05-11] MEDS: METOPROLOL 50 MG TAB PO ×2 (08:31→20:52)
[2017-05-11] MEDS: CHOLECALCIFEROL 2,000 UNIT CAP PO (08:31)
[2017-05-11] MEDS: PSYLLIUM 28% PACKET PO ×2 (08:31→20:51)
[2017-05-11] MEDS: POTASSIUM CHLORIDE 20 MEQ POWDER FOR ORAL SOLN PO (08:32)
[2017-05-11] MEDS: ANASTROZOLE 1 MG TAB PO (08:33)
[2017-05-11] MEDS: ENOXAPARIN 60 MG/0.6 ML SYG SC (08:35)
[2017-05-11] MEDS: LIDOCAINE 1% (MPF) 5 ML VIAL SC (09:40)
[2017-05-11] MEDS: CASPOFUNGIN 50 MG in SOD CHLORIDE 0.9% 250 ML IVPB (14:41)
[2017-05-11] MEDS ORDERED: LIDOCAINE 1% (MPF) 5 ML VIAL SC (20:00)
[2017-05-11] MEDS: ZOLPIDEM 5 MG TAB PO (22:57)
[2017-05-12] MEDS: HYDROmorphONE 2 MG/ML SYG IV ×8 (00:02→23:08)
[2017-05-12] MEDS: VANCOMYCIN HCL 250 MG/5ML POSYG PO ×4 (00:03→17:59)
[2017-05-12] MEDS: ACCU-CHEK XX ×5 (02:00→21:00)
[2017-05-12] MEDS: LEVOTHYROXINE 75 MCG TAB PO (06:00)
[2017-05-12] MEDS: PANTOPRAZOLE (EC) 40 MG TAB PO (06:00)
[2017-05-12] MEDS: OCTREOTIDE 100 MCG INJ SC ×3 (06:01→22:24)
[2017-05-12] MEDS: SOD CHLORIDE 0.9% 1,000 ML IV (06:01)
[2017-05-12 06:33] LABS: ADD MAN DIFF? NO
[2017-05-12 06:41] LABS: ABNORMAL IP MESSAGE 1; BASOPHILS % 0.6 % (0.0-2.0); EOSINOPHILS # 0.1 10^3/ul (0.0-0.5); EOSINOPHILS % 3.7 % (0.0-7.0); HEMATOCRIT 31.5 % (37.0-47.0); HEMOGLOBIN 10.1 g/dl (12.0-16.0); LYMPHOCYTES # 1.7 10^3/ul (0.8-2.9); LYMPHOCYTES % 52.9 % (15.0-51.0); MEAN CORPUSCULAR HEMOGLOBIN 26.9 pg (29.0-33.0); MEAN CORPUSCULAR HGB CONC 32.1 g/dl (32.0-37.0); MEAN PLATELET VOLUME 10.5 fl (7.4-10.4); MONOCYTE # 0.4 10^3/ul (0.3-0.9); MONOCYTES % 11.8 % (0.0-11.0); NEUTROPHILS % 30.7 % (39.0-77.0); PLATELET COUNT 153 10^3/UL (140-415); RED BLOOD COUNT 3.75 10^6/ul (4.20-5.40); RED CELL DISTRIBUTION WIDTH 15.9 % (11.5-14.5)
[2017-05-12 06:41] LABS: WHITE BLOOD COUNT 3.2 10^3/ul (4.8-10.8)
[2017-05-12 06:43] LABS: POSITIVE DIFF @See below
[2017-05-12 07:15] LABS: ANION GAP 15 (8-16); BLOOD UREA NITROGEN 5 mg/dl (7-20); CALCIUM 8.7 mg/dl (8.4-10.2); CARBON DIOXIDE 25 mmol/L (21-31); CHLORIDE 107 mmol/L (97-110); GLUCOSE 121 mg/dl (70-220); POTASSIUM 3.9 mmol/L (3.5-5.1); SODIUM 143 mmol/L (135-144)
[2017-05-12] MEDS: APIXABAN 5 MG TABLET PO ×2 (09:00→20:58)
[2017-05-12] MEDS: ENOXAPARIN 60 MG/0.6 ML SYG SC ×2 (09:00→16:34)
[2017-05-12] MEDS: ZINC SULFATE 220 MG CAP PO (09:11)
[2017-05-12] MEDS: CEFEPIME 1GM/50 ML (PMX) 50 ML IVPB ×2 (09:11→20:57)
[2017-05-12] MEDS: PSYLLIUM 28% PACKET PO ×2 (09:11→20:57)
[2017-05-12] MEDS: ANASTROZOLE 1 MG TAB PO (09:11)
[2017-05-12] MEDS: CHOLECALCIFEROL 2,000 UNIT CAP PO (09:12)
[2017-05-12] MEDS: CYCLOBENZAPRINE 10 MG TAB PO ×2 (09:12→20:58)
[2017-05-12] MEDS: MULTIVITAMINS/MINERALS TAB PO (09:12)
[2017-05-12] MEDS: METOPROLOL 50 MG TAB PO ×2 (09:12→20:58)
[2017-05-12] MEDS: ASCORBIC ACID 500 MG TAB PO ×2 (09:12→20:58)
[2017-05-12] MEDS: LISINOPRIL 10 MG TAB PO (09:13)
[2017-05-12] MEDS: POTASSIUM CHLORIDE 20 MEQ POWDER FOR ORAL SOLN PO (12:06)
[2017-05-12] MEDS: POTASSIUM CHLORIDE (SR) 20 MEQ TAB PO (12:06)
[2017-05-12] MEDS: CASPOFUNGIN 50 MG in SOD CHLORIDE 0.9% 250 ML IVPB (14:39)
[2017-05-12] MEDS: FENTAnyl PATCH 12 MCG/HR TRANSDERM (16:44)
[2017-05-13] MEDS: VANCOMYCIN HCL 250 MG/5ML POSYG PO ×5 (00:04→23:32)
[2017-05-13] MEDS: ZOLPIDEM 5 MG TAB PO ×2 (01:43→21:58)
[2017-05-13] MEDS: ACCU-CHEK XX ×5 (02:00→21:00)
[2017-05-13] MEDS: HYDROmorphONE 2 MG/ML SYG IV ×7 (02:18→23:32)
[2017-05-13] MEDS: PANTOPRAZOLE (EC) 40 MG TAB PO (05:23)
[2017-05-13] MEDS: OCTREOTIDE 100 MCG INJ SC ×3 (05:52→21:23)
[2017-05-13] MEDS: LEVOTHYROXINE 75 MCG TAB PO (05:52)
[2017-05-13] MEDS: SOD CHLORIDE 0.9% 1,000 ML IV (07:15)
[2017-05-13 08:29] LABS: ALANINE AMINOTRANSFERASE 34 IU/L (13-69); ALBUMIN/GLOBULIN RATIO 0.78; ALKALINE PHOSPHATASE 126 IU/L (42-121); ANION GAP 11 (8-16); ASPARTATE AMINO TRANSFERASE 30 IU/L (15-46); BILIRUBIN,INDIRECT 0.4 mg/dl (0-1.1); BILIRUBIN,TOTAL 0.4 mg/dl (0.2-1.3); BLOOD UREA NITROGEN 6 mg/dl (7-20); CALCIUM 8.6 mg/dl (8.4-10.2); CARBON DIOXIDE 26 mmol/L (21-31); CHLORIDE 106 mmol/L (97-110); CREATININE 0.75 mg/dl (0.44-1.00); GLUCOSE 115 mg/dl (70-220); POTASSIUM 3.7 mmol/L (3.5-5.1); SODIUM 139 mmol/L (135-144); TOTAL PROTEIN 6.8 g/dl (6.1-8.1)
[2017-05-13] MEDS: PSYLLIUM 28% PACKET PO ×2 (08:58→21:26)
[2017-05-13] MEDS: CYCLOBENZAPRINE 10 MG TAB PO ×2 (08:59→21:25)
[2017-05-13] MEDS: ZINC SULFATE 220 MG CAP PO (08:59)
[2017-05-13] MEDS: APIXABAN 5 MG TABLET PO ×2 (08:59→21:26)
[2017-05-13] MEDS: POTASSIUM CHLORIDE (SR) 20 MEQ TAB PO (08:59)
[2017-05-13] MEDS: ASCORBIC ACID 500 MG TAB PO ×2 (08:59→21:25)
[2017-05-13] MEDS: MULTIVITAMINS/MINERALS TAB PO (08:59)
[2017-05-13] MEDS: CHOLECALCIFEROL 2,000 UNIT CAP PO (08:59)
[2017-05-13] MEDS: POTASSIUM CHLORIDE 20 MEQ POWDER FOR ORAL SOLN PO (09:00)
[2017-05-13] MEDS: LISINOPRIL 10 MG TAB PO (09:00)
[2017-05-13] MEDS: METOPROLOL 50 MG TAB PO ×2 (09:00→21:26)
[2017-05-13] MEDS: ANASTROZOLE 1 MG TAB PO (09:01)
[2017-05-13] MEDS: ENOXAPARIN 60 MG/0.6 ML SYG SC (09:02)
[2017-05-13] MEDS: CEFEPIME 1GM/50 ML (PMX) 50 ML IVPB ×2 (09:04→21:26)
[2017-05-13] MEDS: CASPOFUNGIN 50 MG in SOD CHLORIDE 0.9% 250 ML IVPB (14:50)
[2017-05-14] MEDS: ACCU-CHEK XX ×5 (02:00→21:00)
[2017-05-14] MEDS: HYDROmorphONE 2 MG/ML SYG IV ×7 (02:32→21:13)
[2017-05-14] MEDS: VANCOMYCIN HCL 250 MG/5ML POSYG PO ×3 (05:33→18:01)
[2017-05-14] MEDS: OCTREOTIDE 100 MCG INJ SC ×3 (05:34→21:40)
[2017-05-14] MEDS: PANTOPRAZOLE (EC) 40 MG TAB PO (05:34)
[2017-05-14] MEDS: LEVOTHYROXINE 75 MCG TAB PO (05:34)
[2017-05-14 06:21] LABS: ADD MAN DIFF? NO
[2017-05-14 06:38] LABS: BASOPHILS % 0.6 % (0.0-2.0); EOSINOPHILS # 0.1 10^3/ul (0.0-0.5); EOSINOPHILS % 3.1 % (0.0-7.0); HEMATOCRIT 29.8 % (37.0-47.0); HEMOGLOBIN 9.7 g/dl (12.0-16.0); LYMPHOCYTES # 1.7 10^3/ul (0.8-2.9); LYMPHOCYTES % 52.2 % (15.0-51.0); MEAN CORPUSCULAR HEMOGLOBIN 27.4 pg (29.0-33.0); MEAN CORPUSCULAR HGB CONC 32.6 g/dl (32.0-37.0); MEAN CORPUSCULAR VOLUME 84.2 fl (82.0-101.0); MONOCYTE # 0.4 10^3/ul (0.3-0.9); MONOCYTES % 11.5 % (0.0-11.0); NEUTROPHIL # 1.1 10^3/ul (1.6-7.5); NEUTROPHILS % 32.6 % (39.0-77.0); PLATELET COUNT 121 10^3/UL (140-415); RED BLOOD COUNT 3.54 10^6/ul (4.20-5.40); RED CELL DISTRIBUTION WIDTH 15.6 % (11.5-14.5)
[2017-05-14 06:38] LABS: WHITE BLOOD COUNT 3.2 10^3/ul (4.8-10.8)
[2017-05-14 07:00] LABS: ANION GAP 11 (8-16); BLOOD UREA NITROGEN 6 mg/dl (7-20); CALCIUM 8.9 mg/dl (8.4-10.2); CARBON DIOXIDE 27 mmol/L (21-31); CHLORIDE 105 mmol/L (97-110); CREATININE 0.71 mg/dl (0.44-1.00); GLUCOSE 126 mg/dl (70-220); POTASSIUM 3.6 mmol/L (3.5-5.1); SODIUM 139 mmol/L (135-144)
[2017-05-14] MEDS: SOD CHLORIDE 0.9% 1,000 ML IV (07:15)
[2017-05-14] MEDS: APIXABAN 5 MG TABLET PO ×2 (08:37→21:37)
[2017-05-14] MEDS: MULTIVITAMINS/MINERALS TAB PO (08:38)
[2017-05-14] MEDS: ZINC SULFATE 220 MG CAP PO (08:38)
[2017-05-14] MEDS: LISINOPRIL 20 MG TAB PO (08:41)
[2017-05-14] MEDS: ANASTROZOLE 1 MG TAB PO (08:41)
[2017-05-14] MEDS: POTASSIUM CHLORIDE (SR) 20 MEQ TAB PO (08:42)
[2017-05-14] MEDS: CHOLECALCIFEROL 2,000 UNIT CAP PO (08:42)
[2017-05-14] MEDS: ASCORBIC ACID 500 MG TAB PO ×2 (08:42→21:37)
[2017-05-14] MEDS: CYCLOBENZAPRINE 10 MG TAB PO ×2 (08:42→21:37)
[2017-05-14] MEDS: ENOXAPARIN 60 MG/0.6 ML SYG SC (08:42)
[2017-05-14] MEDS: METOPROLOL 50 MG TAB PO ×2 (08:42→21:41)
[2017-05-14] MEDS: PSYLLIUM 28% PACKET PO ×2 (08:43→21:38)
[2017-05-14] MEDS: POTASSIUM CHLORIDE 20 MEQ POWDER FOR ORAL SOLN PO (08:43)
[2017-05-14] MEDS: CEFEPIME 1GM/50 ML (PMX) 50 ML IVPB ×2 (08:44→21:39)
[2017-05-14] MEDS: CLONIDINE 0.1 MG/24 HR PATCH TRANSDERM (14:56)
[2017-05-14] MEDS: CASPOFUNGIN 50 MG in SOD CHLORIDE 0.9% 250 ML IVPB (14:56)
[2017-05-14] MEDS: ZOLPIDEM 5 MG TAB PO (22:03)
[2017-05-15] MEDS: HYDROmorphONE 2 MG/ML SYG IV ×7 (01:17→21:35)
[2017-05-15] MEDS: ACCU-CHEK XX ×5 (01:56→21:02)
[2017-05-15] MEDS: OCTREOTIDE 100 MCG INJ SC ×3 (05:47→21:36)
[2017-05-15] MEDS: LEVOTHYROXINE 75 MCG TAB PO (05:47)
[2017-05-15] MEDS: PANTOPRAZOLE (EC) 40 MG TAB PO (05:47)
[2017-05-15] MEDS: SOD CHLORIDE 0.9% 1,000 ML IV (05:54)
[2017-05-15] MEDS: POTASSIUM CHLORIDE 20 MEQ POWDER FOR ORAL SOLN PO (09:00)
[2017-05-15] MEDS: POTASSIUM CHLORIDE (SR) 20 MEQ TAB PO (09:29)
[2017-05-15] MEDS: CYCLOBENZAPRINE 10 MG TAB PO ×2 (09:30→20:57)
[2017-05-15] MEDS: ASCORBIC ACID 500 MG TAB PO ×2 (09:30→20:57)
[2017-05-15] MEDS: MULTIVITAMINS/MINERALS TAB PO (09:30)
[2017-05-15] MEDS: LISINOPRIL 20 MG TAB PO (09:31)
[2017-05-15] MEDS: ANASTROZOLE 1 MG TAB PO (09:31)
[2017-05-15] MEDS: METOPROLOL 50 MG TAB PO ×2 (09:31→20:57)
[2017-05-15] MEDS: CHOLECALCIFEROL 2,000 UNIT CAP PO (09:32)
[2017-05-15] MEDS: ZINC SULFATE 220 MG CAP PO (09:32)
[2017-05-15] MEDS: PSYLLIUM 28% PACKET PO ×2 (09:32→20:58)
[2017-05-15] MEDS: APIXABAN 5 MG TABLET PO ×2 (09:33→20:57)
[2017-05-15] MEDS: ENOXAPARIN 60 MG/0.6 ML SYG SC (09:34)
[2017-05-15] MEDS: CASPOFUNGIN 50 MG in SOD CHLORIDE 0.9% 250 ML IVPB (14:23)
[2017-05-15] MEDS: FENTAnyl PATCH 12 MCG/HR TRANSDERM (14:33)
[2017-05-15] MEDS: ZOLPIDEM 5 MG TAB PO (23:58)
[2017-05-16] MEDS: HYDROmorphONE 2 MG/ML SYG IV ×8 (00:45→23:25)
[2017-05-16] MEDS: ACCU-CHEK XX ×5 (02:00→21:00)
[2017-05-16] MEDS: PANTOPRAZOLE (EC) 40 MG TAB PO (05:47)
[2017-05-16] MEDS: OCTREOTIDE 100 MCG INJ SC ×3 (05:47→21:07)
[2017-05-16] MEDS: LEVOTHYROXINE 75 MCG TAB PO (05:47)
[2017-05-16 06:19] LABS: ADD MAN DIFF? NO
[2017-05-16 06:41] LABS: ABNORMAL IP MESSAGE 1; EOSINOPHILS # 0.1 10^3/ul (0.0-0.5); EOSINOPHILS % 2.9 % (0.0-7.0); HEMATOCRIT 29.7 % (37.0-47.0); HEMOGLOBIN 9.7 g/dl (12.0-16.0); LYMPHOCYTES # 1.9 10^3/ul (0.8-2.9); LYMPHOCYTES % 58.9 % (15.0-51.0); MEAN CORPUSCULAR HEMOGLOBIN 27.6 pg (29.0-33.0); MEAN CORPUSCULAR HGB CONC 32.7 g/dl (32.0-37.0); MEAN CORPUSCULAR VOLUME 84.6 fl (82.0-101.0); MEAN PLATELET VOLUME 11.1 fl (7.4-10.4); MONOCYTE # 0.3 10^3/ul (0.3-0.9); MONOCYTES % 10.8 % (0.0-11.0); NEUTROPHIL # 0.8 10^3/ul (1.6-7.5); NEUTROPHILS % 25.8 % (39.0-77.0); PLATELET COUNT 110 10^3/UL (140-415); RED BLOOD COUNT 3.51 10^6/ul (4.20-5.40); RED CELL DISTRIBUTION WIDTH 15.5 % (11.5-14.5)
[2017-05-16 06:41] LABS: WHITE BLOOD COUNT 3.1 10^3/ul (4.8-10.8)
[2017-05-16 06:51] LABS: ANION GAP 12 (8-16); BLOOD UREA NITROGEN 7 mg/dl (7-20); CALCIUM 8.7 mg/dl (8.4-10.2); CARBON DIOXIDE 26 mmol/L (21-31); CHLORIDE 107 mmol/L (97-110); CREATININE 0.73 mg/dl (0.44-1.00); GLUCOSE 123 mg/dl (70-220); POTASSIUM 3.8 mmol/L (3.5-5.1); SODIUM 141 mmol/L (135-144)
[2017-05-16 07:02] LABS: POSITIVE DIFF @See below
[2017-05-16] MEDS: SOD CHLORIDE 0.9% 1,000 ML IV (07:15)
[2017-05-16] MEDS: APIXABAN 5 MG TABLET PO (09:00)
[2017-05-16] MEDS: PSYLLIUM 28% PACKET PO ×2 (10:35→21:07)
[2017-05-16] MEDS: POTASSIUM CHLORIDE (SR) 20 MEQ TAB PO (10:35)
[2017-05-16] MEDS: POTASSIUM CHLORIDE 20 MEQ POWDER FOR ORAL SOLN PO ×2 (10:35→10:54)
[2017-05-16] MEDS: CHOLECALCIFEROL 2,000 UNIT CAP PO (10:36)
[2017-05-16] MEDS: METOPROLOL 50 MG TAB PO ×2 (10:37→21:08)
[2017-05-16] MEDS: CYCLOBENZAPRINE 10 MG TAB PO ×2 (10:37→21:08)
[2017-05-16] MEDS: ASCORBIC ACID 500 MG TAB PO ×2 (10:38→21:08)
[2017-05-16] MEDS: MULTIVITAMINS/MINERALS TAB PO (10:38)
[2017-05-16] MEDS: LISINOPRIL 20 MG TAB PO (10:39)
[2017-05-16] MEDS: ANASTROZOLE 1 MG TAB PO (10:47)
[2017-05-16] MEDS: ENOXAPARIN 60 MG/0.6 ML SYG SC (10:47)
[2017-05-16] MEDS: ZINC SULFATE 220 MG CAP PO (10:49)
[2017-05-16] MEDS: CASPOFUNGIN 50 MG in SOD CHLORIDE 0.9% 250 ML IVPB (13:55)
[2017-05-17] MEDS: ZOLPIDEM 5 MG TAB PO ×2 (01:29→23:24)
[2017-05-17] MEDS: ACCU-CHEK XX ×5 (02:00→20:36)
[2017-05-17] MEDS: HYDROmorphONE 2 MG/ML SYG IV ×7 (02:54→21:19)
[2017-05-17] MEDS: SOD CHLORIDE 0.9% 1,000 ML IV (02:56)
[2017-05-17] MEDS: LEVOTHYROXINE 75 MCG TAB PO (05:35)
[2017-05-17] MEDS: PANTOPRAZOLE (EC) 40 MG TAB PO (05:35)
[2017-05-17] MEDS: OCTREOTIDE 100 MCG INJ SC ×3 (05:36→22:36)
[2017-05-17 06:39] LABS: ADD MAN DIFF? NO
[2017-05-17 06:53] LABS: WHITE BLOOD COUNT 3.4 10^3/ul (4.8-10.8)
[2017-05-17 06:53] LABS: ABNORMAL IP MESSAGE 1; BASOPHILS % 0.6 % (0.0-2.0); EOSINOPHILS # 0.1 10^3/ul (0.0-0.5); HEMOGLOBIN 9.4 g/dl (12.0-16.0); LYMPHOCYTES % 58.2 % (15.0-51.0); MEAN CORPUSCULAR HEMOGLOBIN 27.5 pg (29.0-33.0); MEAN CORPUSCULAR HGB CONC 32.4 g/dl (32.0-37.0); MEAN CORPUSCULAR VOLUME 84.8 fl (82.0-101.0); MEAN PLATELET VOLUME 12.2 fl (7.4-10.4); MONOCYTE # 0.3 10^3/ul (0.3-0.9); MONOCYTES % 9.8 % (0.0-11.0); NEUTROPHILS % 28.1 % (39.0-77.0); PLATELET COUNT 131 10^3/UL (140-415); RED BLOOD COUNT 3.42 10^6/ul (4.20-5.40); RED CELL DISTRIBUTION WIDTH 15.4 % (11.5-14.5)
[2017-05-17 07:08] LABS: INR 1.27; PROTIME 16.1 Sec (11.9-14.9); PT RATIO 1.3
[2017-05-17 07:09] LABS: PARTIAL THROMBOPLASTIN TIME 43.6 Sec (25.0-35.0); POSITIVE DIFF @See below
[2017-05-17 07:16] LABS: ALANINE AMINOTRANSFERASE 36 IU/L (13-69); ALBUMIN 3.1 g/dl (3.3-4.9); ALBUMIN/GLOBULIN RATIO 0.81; ALKALINE PHOSPHATASE 132 IU/L (42-121); ANION GAP 13 (8-16); ASPARTATE AMINO TRANSFERASE 35 IU/L (15-46); BILIRUBIN,INDIRECT 0.5 mg/dl (0-1.1); BILIRUBIN,TOTAL 0.5 mg/dl (0.2-1.3); BLOOD UREA NITROGEN 6 mg/dl (7-20); CALCIUM 8.6 mg/dl (8.4-10.2); CARBON DIOXIDE 25 mmol/L (21-31); CHLORIDE 108 mmol/L (97-110); CREATININE 0.71 mg/dl (0.44-1.00); GLUCOSE 111 mg/dl (70-220); POTASSIUM 3.7 mmol/L (3.5-5.1); SODIUM 142 mmol/L (135-144); TOTAL PROTEIN 6.9 g/dl (6.1-8.1)
[2017-05-17] MEDS: PSYLLIUM 28% PACKET PO ×2 (08:57→20:34)
[2017-05-17] MEDS: CYCLOBENZAPRINE 10 MG TAB PO ×2 (08:58→20:34)
[2017-05-17] MEDS: ANASTROZOLE 1 MG TAB PO (08:59)
[2017-05-17] MEDS: MULTIVITAMINS/MINERALS TAB PO (08:59)
[2017-05-17] MEDS: ZINC SULFATE 220 MG CAP PO (08:59)
[2017-05-17] MEDS: ASCORBIC ACID 500 MG TAB PO ×2 (08:59→20:35)
[2017-05-17] MEDS: METOPROLOL 50 MG TAB PO ×2 (09:00→20:35)
[2017-05-17] MEDS: POTASSIUM CHLORIDE (SR) 20 MEQ TAB PO (09:00)
[2017-05-17] MEDS: LISINOPRIL 20 MG TAB PO (09:00)
[2017-05-17] MEDS: CHOLECALCIFEROL 2,000 UNIT CAP PO (09:00)
[2017-05-17] MEDS: ENOXAPARIN 60 MG/0.6 ML SYG SC (09:01)
[2017-05-17] MEDS: CASPOFUNGIN 50 MG in SOD CHLORIDE 0.9% 250 ML IVPB (13:14)
[2017-05-17] MEDS: POTASSIUM CHLORIDE 20 MEQ POWDER FOR ORAL SOLN PO (18:22)
[2017-05-18] MEDS: HYDROmorphONE 2 MG/ML SYG IV ×7 (01:18→20:00)
[2017-05-18] MEDS: ACCU-CHEK XX ×5 (02:00→21:48)
[2017-05-18] MEDS: PANTOPRAZOLE (EC) 40 MG TAB PO (06:20)
[2017-05-18] MEDS: LEVOTHYROXINE 75 MCG TAB PO (06:20)
[2017-05-18] MEDS: OCTREOTIDE 100 MCG INJ SC ×3 (06:48→21:48)
[2017-05-18] MEDS: SOD CHLORIDE 0.9% 1,000 ML IV (07:45)
[2017-05-18] MEDS: ZINC SULFATE 220 MG CAP PO (08:09)
[2017-05-18] MEDS: MULTIVITAMINS/MINERALS TAB PO (08:09)
[2017-05-18] MEDS: CHOLECALCIFEROL 2,000 UNIT CAP PO (08:10)
[2017-05-18] MEDS: ANASTROZOLE 1 MG TAB PO (08:10)
[2017-05-18] MEDS: LISINOPRIL 20 MG TAB PO (08:11)
[2017-05-18] MEDS: POTASSIUM CHLORIDE (SR) 20 MEQ TAB PO (08:11)
[2017-05-18] MEDS: METOPROLOL 50 MG TAB PO ×2 (08:11→20:46)
[2017-05-18] MEDS: CYCLOBENZAPRINE 10 MG TAB PO ×2 (08:12→20:45)
[2017-05-18] MEDS: PSYLLIUM 28% PACKET PO ×2 (08:12→20:45)
[2017-05-18] MEDS: ASCORBIC ACID 500 MG TAB PO ×2 (08:12→20:45)
[2017-05-18] MEDS: POTASSIUM CHLORIDE 20 MEQ POWDER FOR ORAL SOLN PO (09:00)
[2017-05-18] MEDS: ENOXAPARIN 60 MG/0.6 ML SYG SC (09:43)
[2017-05-18] MEDS: FENTAnyl PATCH 12 MCG/HR TRANSDERM (12:24)
[2017-05-18] MEDS: CASPOFUNGIN 50 MG in SOD CHLORIDE 0.9% 250 ML IVPB (13:17)
== END 2017-05-18 21:58 | disposition home health service (06) | DRG 314 ==
LOC: PP2 05-12 08:19 → E/R 23:34 → PP2 05-04 17:20 → MS3 04-30 06:55 → MS4 04-30 19:15
PROC: 02H633Z Insertion of Infusion Device into Right Atrium, Percutaneous Approach (ICD-10-PCS; principal; 2017-05-12)
DX: T80.211A Bloodstream infection due to central venous catheter, initial encounter (principal); B37.7 Candidal sepsis; R65.20 Severe sepsis without septic shock; A41.81 Sepsis due to Enterococcus; D61.811 Other drug-induced pancytopenia; C79.51 Secondary malignant neoplasm of bone; C16.9 Malignant neoplasm of stomach, unspecified; N39.0 Urinary tract infection, site not specified; D64.9 Anemia, unspecified; E11.9 Type 2 diabetes mellitus without complications; G89.29 Other chronic pain; Z79.899 Other long term (current) drug therapy; Z85.3 Personal history of malignant neoplasm of breast; Z86.718 Personal history of other venous thrombosis and embolism; E03.9 Hypothyroidism, unspecified; B35.1 Tinea unguium; B96.89 Other specified bacterial agents as the cause of diseases classified elsewhere; M54.2 Cervicalgia; Z98.84 Bariatric surgery status; Z93.3 Colostomy status
CPT/HCPCS: 36415; 36569; 71045; 72040; 74176; 76937; 80048; 80053; 80061; 81001; 82962; 83036; 83605; 84443; 84484; 85025; 85378; 85610; 85651; 85730; 87040; 87045; 87075; 87081; 87086; 93005; 93306; 93970; 93971; 96374; 96375; 99285-25; J2430

== ENCOUNTER 2018-04-15 15:44 | Emergency (ER) | payer BC ==
[2018-04-15 17:23] LABS: ADD UMIC NO; UR ASCORBIC ACID NEGATIVE (NEGATIVE); UR BILIRUBIN (Dip) NEGATIVE (NEGATIVE); UR BLOOD (Dip) NEGATIVE (NEGATIVE); UR CLARITY CLEAR (CLEAR); UR COLOR YELLOW (YELLOW); UR GLUCOSE (Dip) NEGATIVE (NEGATIVE); UR KETONES (Dip) NEGATIVE (NEGATIVE); UR LEUKOCYTE ESTERASE (Dip) NEGATIVE Leu/ul (NEGATIVE); UR NITRITE (Dip) NEGATIVE (NEGATIVE); UR SPECIFIC GRAVITY (Dip) 1.014 (1.003-1.030); UR TOTAL PROTEIN (Dip) NEGATIVE (NEGATIVE); UR UROBILINOGEN (Dip) NEGATIVE (NEGATIVE)
[2018-04-15] MEDS: KETOROLAC 15 MG INJ IV (18:01)
[2018-04-15] MEDS: SOD CHLORIDE 0.9% 1,000 ML IV (18:05)
[2018-04-15 18:15] LABS: HEMATOCRIT 26.5 % (37.0-47.0); HEMOGLOBIN 8.5 g/dl (12.0-16.0); MEAN CORPUSCULAR HEMOGLOBIN 30.5 pg (29.0-33.0); MEAN CORPUSCULAR HGB CONC 32.1 g/dl (32.0-37.0); MEAN PLATELET VOLUME 9.9 fl (7.4-10.4); PLATELET COUNT 115 10^3/UL (140-415); RED BLOOD COUNT 2.79 10^6/ul (4.20-5.40); RED CELL DISTRIBUTION WIDTH 17.4 % (11.5-14.5)
[2018-04-15 18:15] LABS: WHITE BLOOD COUNT 2.9 10^3/ul (4.8-10.8)
[2018-04-15 18:22] LABS: POSITIVE DIFF @See below
[2018-04-15 18:27] LABS: ALANINE AMINOTRANSFERASE 12 IU/L (13-69); ALBUMIN/GLOBULIN RATIO 0.85; ALKALINE PHOSPHATASE 93 IU/L (42-121); ANION GAP 12 (5-13); ASPARTATE AMINO TRANSFERASE 37 IU/L (15-46); BILIRUBIN,INDIRECT 0.1 mg/dl (0-1.1); BILIRUBIN,TOTAL 0.1 mg/dl (0.2-1.3); BLOOD UREA NITROGEN 20 mg/dl (7-20); CALCIUM 8.8 mg/dl (8.4-10.2); CARBON DIOXIDE 20 mmol/L (21-31); CHLORIDE 110 mmol/L (97-110); CREATININE 0.95 mg/dl (0.44-1.00); Estimated GFR > 60 mL/min (>60); GLUCOSE 67 mg/dl (70-220); LIPASE 16 U/L (23-300); POTASSIUM 3.6 mmol/L (3.5-5.1); SODIUM 142 mmol/L (135-144); TOTAL PROTEIN 6.5 g/dl (6.1-8.1)
[2018-04-15 18:50] LABS: ADD MAN DIFF? YES
[2018-04-15 19:10] LABS: BAND NEUTROPHILS % (M) 1 % (0-4); EOSINOPHILS % (M) 1 % (0-7); LYMPHOCYTES #M 1.4 10^3/ul (0.8-2.9); LYMPHOCYTES % (M) 50 % (15-51); MONOCYTE #M 0.1 10^3/ul (0.3-0.9); MONOCYTES % (M) 4 % (0-11); SEG NEUT #M 1.3 10^3/ul (1.6-7.5); SEGMENTED NEUTROPHILS (M) % 44 % (39-77); SMUDGE%M 2 % (0-0)
== END 2018-04-15 19:47 | disposition home or self-care (01) ==
LOC: E/R 15:44
DX: M54.5 Low back pain (principal); E86.0 Dehydration; C50.911 Malignant neoplasm of unspecified site of right female breast; I10 Essential (primary) hypertension; E11.9 Type 2 diabetes mellitus without complications; E03.9 Hypothyroidism, unspecified; E66.01 Morbid (severe) obesity due to excess calories; Z68.30 Body mass index [BMI] 30.0-30.9, adult; Z85.028 Personal history of other malignant neoplasm of stomach; Z79.84 Long term (current) use of oral hypoglycemic drugs
CPT/HCPCS: 36415; 80053; 81003; 83690; 85025; 96374; 99284-25